=== PATIENT | female | born 1995 | race Caucasian/White ===

== ENCOUNTER 2018-10-07 10:27 | Outpatient (CLI) | payer OTHER ==
[2018-10-07] MEDS ORDERED: GADOBUTROL 7.5 MMOL/7.5 ML VIAL ONE (13:58)
[2018-10-07] MEDS ORDERED: GADOBUTROL 7.5 MMOL/7.5 ML VIAL IVP ONE (14:02)
--- NOTE | 2018-10-07 16:03 | MRI Report ---
Reason: PELVIC AND PERINEAL PAIN Procedure Date: 10/07/2018 Accession Number: [id number] / [id number] Procedure: MRI - Pelvis W/WO CPT Code: FULL RESULT: EXAM: MRI PELVIS WITHOUT AND WITH CONTRAST EXAM DATE: 10/07/2018 01:24 PM. CLINICAL HISTORY: PELVIC AND PERINEAL PAIN. COMPARISON: None. TECHNIQUE: Multiplanar, multisequence T1-weighted and fluid-sensitive sequences of the pelvis before and after administration of intravenous contrast. IV contrast: 6 cc Gadavist. Other: None. FINDINGS: Abdominal organs: None included in the [id number]. Reproductive organs: Uterus is anteverted and measures approximately 5.7 x 5.1 x 3.3 cm (50 cc). There is no evidence for uterine anomaly. The myometrium is unremarkable in appearance. No fibroids demonstrated. Endometrium measures approximately 3 mm in thickness, which is within normal limits. The cervix is unremarkable. A filling defect is present in the vagina, most likely a tampon. Both ovaries are unremarkable with multiple follicles. Right ovary measures 2.4 x 2.3 x 2.0 cm (5.7 cc). The left ovary measures 2.7 x 1.9 x 1.9 cm (5.1 cc). Bowel: No evidence for obstruction or inflammation visualized portions. There is stool in the cecum and ascending colon. Bones: The visualized bones demonstrate normal marrow signal. No osseous lesion or evidence for sacroiliitis. Other: No pelvic adenopathy or free fluid. IMPRESSION: Unremarkable pelvic MRI. No etiology for the patient's symptoms identified. RADIA
== END 2018-10-07 10:28 | disposition home or self-care (01) ==
LOC: DI 10:27
DX: R10.2 Pelvic and perineal pain (principal)
CPT/HCPCS: 72197; A9585

== ENCOUNTER 2019-05-02 08:36 | Day surgery (SDC) | payer OTHER ==
[~2019-05-02 08:36] MED LIST: BUPIVACAINE 0.5% PF 30 ML VIAL ONE; METHYLENE BLUE 0.5% 50 MG/10 ML AMPULE ONE; SILVER NITRATE APPLICATOR TOP ONE; VASOPRESSIN 20 UNIT/ML VIAL ONE
[2019-05-02] MEDS ORDERED: KETOROLAC 30 MG/ML VIAL IVP ONE (08:37)
[2019-05-02] MEDS ORDERED: PROPOFOL 200 MG/20 ML VIAL IVP ONE (08:37)
[2019-05-02] MEDS ORDERED: ONDANSETRON 4 MG/2 ML VIAL IVP ONE (08:37)
[2019-05-02] MEDS ORDERED: MIDAZOLAM 2 MG/2 ML VIAL IVP ONE (08:37)
[2019-05-02] MEDS ORDERED: DEXAMETHASONE 4 MG/ML VIAL IVP ONE (08:37)
[2019-05-02] MEDS ORDERED: fentaNYL 100 MCG/2 ML VIAL IVP ONE (08:37)
[2019-05-02] MEDS ORDERED: ePHEDrine 50 MG/ML VIAL IVP ONE (08:37)
[2019-05-02] MEDS ORDERED: NEOSTIGMINE 1 MG/1 ML 10 ML MDV IVP ONE (08:37)
[2019-05-02] MEDS ORDERED: GLYCOPYRROLATE 1 MG/5 ML VIAL IVP ONE (08:37)
[2019-05-02] MEDS ORDERED: ROCURONIUM 50 MG/5 ML VIAL IVP ONE (08:37)
--- NOTE | 2019-05-02 08:45 | ANESTHESIA ---
Pre-Anesthesia VS, & Labs - Diagnosis chronic pelvic pain - Procedure diagnostic laparoscopy Height 5 ft 4 in Weight (kg) 61.7 kg Body Mass Index 21.4 - NPO >8 hours - Is Patient ?: No - Lab Results Lab results reviewed: Yes Home Medications and Allergies Home Medications: Ambulatory Orders Ibuprofen [Motrin] 600 mg PO Q6H PRN 04/22/19 Norethindrone-Ethinyl Estrad [Ortho-Novum] 1 each PO 04/22/19 Sertraline HCl [Zoloft] 100 mg PO 04/22/19 Ibuprofen [Motrin] 600 mg PO Q6H PRN 04/22/19 Norethindrone-Ethinyl Estrad [Ortho-Novum] 1 each PO 04/22/19 Sertraline HCl [Zoloft] 100 mg PO 04/22/19 Allergies/Adverse Reactions: Allergies Allergy/AdvReac Type Severity Reaction Status Date / Time pollen extracts AdvReac Mild Unknown Verified 04/22/19 10:16 Anes History & Medical History - Anesthetic History Anesthesia Complications: reports: No previous complications Family history of Anesthesia Complications: Denies Family history of Malignant Hyperthermia: Denies - Medical History Cardiovascular: reports: None Pulmonary: reports: None Gastrointestinal: reports: None Urinary: reports: None Musculoskeletal: reports: None Endocrine/Autoimmune: reports: None Skin: reports: None - Surgical History General: Appendectomy Eyes Ears Nose Throat (EENT): Tonsil/Adenoidectomy Exam General: Alert, Oriented x3 Dental: WNL Mouth Openin Fingerbreadth Neck Mobility: Normal Mallampati classification: II Respiratory: Lungs clear, Normal breath sounds, No respiratory distress Cardiovascular: Regular rate Neurological: Normal speech Mental/Cognitive Status: Alert/Oriented X3, Normal for patient Cognitive Status: Within normal limits Plan Anesthesia Type: General Consent for Procedure(s) Verified and Reviewed: Yes Code Status: Attempt Resuscitation ASA classification: 1-Healthy patient Is this case an emergency?: No
[2019-05-02 09:06] LABS: HCG UR QUAL NEGATIVE
[2019-05-02] MEDS ORDERED: LACTATED RINGERS 1,000 ML IV ONE ×2 (09:12→11:58)
[2019-05-02] MEDS ORDERED: BUPIVACAINE 0.5% PF 30 ML VIAL SUBQ ONE ×2 (10:55)
[2019-05-02] MEDS ORDERED: HYDROcod/ACETAM 10 MG/325 MG TABLET PO PRN (11:28)
[2019-05-02] MEDS ORDERED: LORazepam 2 MG/ML VIAL ONE (11:55)
[2019-05-02] MEDS ORDERED: HYDROcod/ACETAM 10 MG/325 MG TABLET ONE (12:47)
[2019-05-02] MEDS ORDERED: IOVERSOL 320 50 ML VIAL ONE (13:24)
[2019-05-02] MEDS ORDERED: IOVERSOL 320 100 ML VIAL IVP ONE ×2 (14:10→14:14)
[2019-05-02 15:03] VITALS: BP 129/84
--- NOTE | 2019-05-02 15:17 | CT Report ---
Reason: post op pain, tachy hrt rt. Procedure Date: 05/02/2019 Accession Number: [id number] / [id number] Procedure: CT - Abdomen/Pelvis W CPT Code: FULL RESULT: EXAM: CT ABDOMEN AND PELVIS EXAM DATE: 05/02/2019 02:12 PM. CLINICAL HISTORY: Post operative abdominal pain, tachycardia. COMPARISONS: PELVIS W/WO 10/07/2018 1:24 PM. TECHNIQUE: Routine helical CT imaging was performed through the abdomen and pelvis. IV contrast: OPTI 320 100ML. Enteric contrast: No. Reconstructions: Coronal and sagittal. In accordance with CT protocol optimization, one or more of the following dose reduction techniques were utilized for this exam: automated exposure control, adjustment of mA and/or KV based on patient size, or use of iterative reconstructive technique. FINDINGS: Lung Bases: Mild heterogeneous patchy/nodular opacities present in the right lower lobe. Liver: Unremarkable aside from probable small amount of focal fat adjacent to the falciform ligament. Gallbladder/Bile Ducts: Unremarkable. Spleen: Normal. Pancreas: Normal. Adrenal Glands: Normal. Kidneys: Normal. No mass or hydronephrosis. Peritoneal Cavity/Bowel: No evidence of a bowel obstruction. There is a small amount of extraperitoneal gas in the lower abdomen and pelvis with a few foci of free air in the upper abdomen. No free fluid or abscess. No hemorrhage. No acute inflammatory process identified. The appendix is not identified. No evidence of acute appendicitis Pelvic Organs: Mildly distended bladder without wall thickening. Uterus and adnexa are unremarkable. Vasculature: Unremarkable. Bones: No significant abnormality. Other: Gas present in the lower ventral body wall. IMPRESSION: 1. A small amount of free air with extraperitoneal gas in the pelvis and gas in the ventral body wall is presumably postsurgical. Otherwise no acute intra-abdominal abnormality identified. No free fluid or hemorrhage. 2. Right lower lobe opacities could represent pneumonia or atelectasis. RADIA The call report notification system was initiated by Dr. Burton Cervantes at 02:55 PM on 05/02/2019. The above call report findings were discussed with Nate Gan by Dr. Burton Cervantes at 03:11 PM on 05/02/2019.
--- NOTE | 2019-05-02 16:00 | OPERATIVE REPORT ---
Operative Report - General Procedure Date: 05/02/19 Planned Procedure: Diagnostic laparoscopy Pre-Op Diagnosis: Chronic pelvic pain Procedure Performed: Diagnostic laparoscopy, aborted Post Op Diagnosis: Chronic pelvic pain - Procedure Note Primary Surgeon: Malik Secondary Surgeon: Yesika Anesthesia Provider: Anesthesia Technique: General ET tube Indications: 10 month history of pelvic pain which started during a jogging episode but seems to have become cyclic and associated with menses. Cleared by general surgery and orthopedics. Findings: Patient with a prior history of laparoscopic appendectomy. Unable to enter the abdomen through an umbilical port site either directly or using open technique with a Luis Fernando cannula. A second attempt was made to enter in the left upper quadrant; however, this was also unsuccessful x2. At this point it was elected to discontinue the case and refer the patient to a higher level of care. Complications: Inability to enter the abdomen after multiple attempts. - Other Other Information/Narrative: Findings: Exam under anesthesia noted the uterus was approximately 6 weeks in size and anteverted. There were no adnexal masses palpable. The patient was taken to the operating room, where general endotracheal anesthesia was administered without difficulty. She was then positioned in the low dorsal lithotomy position with her lower extremities in [place] stirrups. Vagina, perineum, and abdomen were then prepped and draped in a sterile fashion. Procedure Time-Out was then performed. An exam under anesthesia was performed. A sterile bivalve speculum was then inserted into the vagina. The anterior lip of the cervix was grasped with a Hulka tenaculum. Multiple attempts were made first with the Verres needle, but successful intra-abdominal placement could not be verified. Direct insertion using Optiview technique was then attempted x2 and was also unsuccessful. Finally multiple attempts with a Mcbride cannula were made, also unsuccessful. Finally 2 attempts were made to enter in the left upper quadrant but these were likewise unsuccessful possibly due to preperitoneal insufflation from previous attempts. It was elected at this juncture to abandon further attempts and refer the patient to a higher level of care. The umbilical incision was closed with the previously placed 2-0 Vicryl in the fascia and 4-0 Monocryl in the skin and the left upper quadrant incision was closed with a subcutaneous 4-0 Monocryl and both incisions closed with Dermabond. Instruments were withdrawn from the vagina and the patient was awakened and taken to the recovery room in stable condition.
== END 2019-05-02 08:37 | disposition home or self-care (01) ==
LOC: SDS 08:36
PROVIDERS: ATTEND Obstetrics & Gynecology
PROC: 0UJDXZZ Inspection of Uterus and Cervix, External Approach (ICD-10-PCS; principal; 2019-05-02 11:00)
DX: R10.2 Pelvic and perineal pain (principal); Z53.8 Procedure and treatment not carried out for other reasons; G89.29 Other chronic pain; Z79.3 Long term (current) use of hormonal contraceptives
CPT/HCPCS: 49320; 74177; 81025; A9270; J2060; J7120; Q9967

== ENCOUNTER 2019-05-29 12:22 | Emergency (ER) | payer OTHER ==
[2019-05-29 12:34] VITALS: BP 136/99
--- NOTE | 2019-05-29 14:15 | ED Physician Documentation ---
History of Present Illness - Stated complaint Stated Complaint: COLD SORES - Chief complaint Chief Complaint: General - History obtained from History obtained from: Patient (3 days of painful lesions on the tongue and right lower lip. She had some submandibular pain yesterday which is now better. 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 [employer]ER: Endometriosis (Possible endometriosis) : None HEENT: None Psych: Depression, Anxiety Musculoskeletal: None Derm: None - Past Surgical History General: Appendectomy HEENT: Tonsil/Adenoidectomy - Present Medications Home Medications: Ambulatory Orders Medication Instructions Recorded Confirmed Ibuprofen [Motrin] 600 mg PO Q6H PRN 04/22/19 05/02/19 Norethindrone-Ethinyl Estrad 1 each PO DAILY 04/22/19 05/02/19 [Ortho-Novum] Sertraline HCl [Zoloft] 100 mg PO DAILY 04/22/19 05/02/19 Valacyclovir HCl [Valtrex] 1,000 mg PO TID #30 tablet 05/29/19 - Allergies Allergies/Adverse Reactions: Allergies Allergy/AdvReac Type Severity Reaction Status Date / Time pollen extracts AdvReac Mild Unknown Verified 04/22/19 10:16 - Social History Does the pt drink ETOH?: No Does the pt have substance abuse?: No PD ED PE NORMAL - Vitals Vital signs reviewed: Yes - General General: Alert and oriented X 3, No acute distress - HEENT HEENT: Other (She has herpes labialis, fairly bad on the right lower lip and some lingular ulcers that are shallow.) - Neck Neck: Supple, no meningeal sign, No bony TTP - Neuro Neuro: Alert and oriented X 3, Normal speech Results - Vitals Vitals: Vital Signs - 24 hr 05/29/19 12:31 Temperature 37 C Heart Rate 99 Respiratory 18 Rate Blood Pressure 136/99 H O2 Saturation 100 Oxygen O2 Source Room air Departure - Departure Disposition: 01 Home, Self Care Clinical Impression: Herpes labialis, Oral ulcer Condition: Good Record reviewed to determine appropriate education?: Yes Instructions: ED Herpes Simplex Virus Type 1 Prescriptions: Valacyclovir HCl [Valtrex] 1,000 mg PO TID #30 tablet Comments: Your blood pressure was elevated today on check into the emergency department. This does not mean that you have hypertension, it is a common phenomenon to come to the emergency department and have elevated blood pressure. I recommend that you see your primary care physician within the week to have it rechecked when you are feeling better.
== END 2019-05-29 14:18 | disposition home or self-care (01) ==
LOC: ED 12:22
DX: B00.1 Herpesviral vesicular dermatitis (principal); K12.1 Other forms of stomatitis; R03.0 Elevated blood-pressure reading, without diagnosis of hypertension
CPT/HCPCS: 99282; 99283

== ENCOUNTER 2019-07-03 17:44 | Inpatient (IN) | payer OTHER ==
[2019-07-03 18:11] LABS: BASOPHILS # (AUTO) 0.1 10^3/uL (0.0-0.1); BASOPHILS % (AUTO) 0.6 %; EOSINOPHILS % (AUTO) 0.1 %; HGB - HEMOGLOBIN 14.6 g/dL (12.0-16.0); LYMPHOCYTES # (AUTO) 2.8 10^3/uL (1.5-3.5); MEAN CORPUSCULAR HEMOGLOBIN 28.9 pg (27.0-31.0); MEAN CORPUSCULAR HGB CONC 32.9 g/dL (32.0-36.0); MEAN CORPUSCULAR VOLUME 87.9 fL (81.0-99.0); MEAN PLATELET VOLUME 11.4 fL (7.9-10.8); MONOCYTES # (AUTO) 0.5 10^3/uL (0.0-1.0); MONOCYTES % (AUTO) 3.3 %; NEUTROPHILS # (AUTO) 12.9 10^3/uL (1.5-6.6); NEUTROPHILS % (AUTO) 78.3 %; PLT - PLATELET COUNT 299 10^3/uL (130-450); RED BLOOD COUNT 5.05 10^6/uL (4.20-5.40); RED CELL DISTRIBUTION WIDTH 12.9 % (12.0-15.0); WHITE BLOOD COUNT 16.5 x10^3/uL (4.8-10.8)
--- NOTE | 2019-07-03 18:12 | ED Physician Documentation ---
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 She presents with kind of an acute suicidal ideation today without specific inciting factor, and at 3 PM she took 2 oxycodone and 4000 mg of Zoloft in a suicide attempt. Convinced to come in by a friend of hers. 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: Endometriosis : None HEENT: None Psych: Depression, Anxiety Musculoskeletal: None Derm: None - Past Surgical History General: Appendectomy HEENT: Tonsil/Adenoidectomy - Present Medications Home Medications: Ambulatory Orders Medication Instructions Recorded Confirmed Ibuprofen [Motrin] 600 mg PO Q6H PRN 04/22/19 05/02/19 Norethindrone-Ethinyl Estrad 1 each PO DAILY 04/22/19 05/02/19 [Ortho-Novum] Sertraline HCl [Zoloft] 100 mg PO DAILY 04/22/19 05/02/19 Valacyclovir HCl [Valtrex] 1,000 mg PO TID #30 tablet 05/29/19 - Allergies Allergies/Adverse Reactions: Allergies Allergy/AdvReac Type Severity Reaction Status Date / Time pollen extracts AdvReac Mild Unknown Verified 07/03/19 17:48 - Social History Does the pt smoke?: No Smoking Status: Never smoker Does the pt drink ETOH?: No Does the pt have substance abuse?: No PD ED PE NORMAL - Vitals Vital signs reviewed: Yes - General General: Alert and oriented X 3, No acute distress - HEENT HEENT: Other (Slightly dilated pupils, tearful) - Neck Neck: Supple, no meningeal sign, No bony TTP - Cardiac Cardiac: RRR, No murmur - Respiratory Respiratory: No respiratory distress, Clear bilaterally - Abdomen Abdomen: Normal bowel sounds, Soft, Non tender - Back Back: No CVA TTP, No spinal TTP - Derm Derm: Normal color, Warm and dry - Extremities Extremities: No edema, No calf tenderness / cord - Neuro Neuro: Alert and oriented X 3, Normal speech Results - Vitals Vitals: Vital Signs - 24 hr 07/03/19 07/03/19 07/03/19 17:48 19:01 22:41 Temperature 37.2 C 36.5 C Heart Rate 127 H 122 H 159 H Respiratory 18 14 26 H Rate Blood Pressure 148/106 H 144/110 H 120/70 O2 Saturation 98 98 99 07/03/19 22:50 Temperature Heart Rate 166 H Respiratory 19 Rate Blood Pressure 134/69 H O2 Saturation 99 Oxygen O2 Source Room air - EKG (time done) 1829 Rate: Rate (enter#) (117) Rhythm: Sinus tachycardia [place]: Normal Intervals: Normal DC QRS: Normal Ischemia: Normal ST segments Computer interpretation: Agree with computer - Labs Labs: Laboratory Tests 07/03/19 07/03/19 07/03/19 17:55 17:55 17:55 WBC 16.5 H RBC 5.05 Hgb 14.6 Hct 44.4 MCV 87.9 MCH 28.9 MCHC 32.9 RDW 12.9 Plt Count 299 MPV 11.4 H Neut # (Auto) 12.9 H Lymph # (Auto) 2.8 [place] # (Auto) 0.5 Eos # (Auto) 0.0 Baso # (Auto) 0.1 Absolute Nucleated RBC 0.00 Nucleated RBC % 0.0 Sodium 139 Potassium 3.8 Chloride 106 Carbon Dioxide 23 Anion Gap 10.0 BUN 12 Creatinine 0.8 Estimated GFR (MDRD) 89 Glucose 112 H Calcium 9.4 Total Bilirubin 0.7 AST 21 ALT 14 Alkaline Phosphatase 43 Total Protein 8.6 H Albumin 4.6 Globulin 4.0 Albumin/Globulin Ratio 1.1 Lipase 45 TSH 1.08 Urine Color Urine Clarity Urine pH Ur Specific [place] Urine Protein Urine Glucose (UA) Urine Ketones Urine Occult Blood Urine Nitrite Urine Bilirubin Urine Urobilinogen Ur Leukocyte Esterase Urine RBC Urine WBC Ur Squamous Epith Cells Urine Bacteria Ur Microscopic Review Urine Culture Comments Urine HCG, Qual Salicylates < 6.0 Urine Opiates Screen Ur Oxycodone Screen Urine Methadone Screen Ur Propoxyphene Screen Acetaminophen 11 Ur Barbiturates Screen Ur Tricyclics Screen Ur Phencyclidine Scrn Ur Amphetamine Screen U Methamphetamines Scrn U Benzodiazepines Scrn Urine Cocaine Screen U Cannabinoids Screen Ethyl Alcohol < 5.0 07/03/19 07/03/19 18:10 18:10 WBC RBC Hgb Hct MCV MCH MCHC RDW Plt Count MPV Neut # (Auto) Lymph # (Auto) [place] # (Auto) Eos # (Auto) Baso # (Auto) Absolute Nucleated RBC Nucleated RBC % Sodium Potassium Chloride Carbon Dioxide Anion Gap BUN Creatinine Estimated GFR (MDRD) Glucose Calcium Total Bilirubin AST ALT Alkaline Phosphatase Total Protein Albumin Globulin Albumin/Globulin Ratio Lipase TSH Urine Color YELLOW Urine Clarity HAZY Urine pH 6.0 Ur Specific [place] >=1.030 H Urine Protein NEGATIVE Urine Glucose (UA) NEGATIVE Urine Ketones NEGATIVE Urine Occult Blood NEGATIVE Urine Nitrite POSITIVE H Urine Bilirubin NEGATIVE Urine Urobilinogen 0.2 (NORMAL) Ur Leukocyte Esterase NEGATIVE Urine RBC 0-5 Urine WBC 6-10 H Ur Squamous Epith Cells RARE Squamous Urine Bacteria Many H Ur Microscopic Review INDICATED Urine Culture Comments INDICATED Urine HCG, Qual NEGATIVE Salicylates Urine Opiates Screen POSITIVE H Ur Oxycodone Screen NEGATIVE Urine Methadone Screen NEGATIVE Ur Propoxyphene Screen NEGATIVE Acetaminophen Ur Barbiturates Screen NEGATIVE Ur Tricyclics Screen NEGATIVE Ur Phencyclidine Scrn NEGATIVE Ur Amphetamine Screen NEGATIVE U Methamphetamines Scrn NEGATIVE U Benzodiazepines Scrn NEGATIVE Urine Cocaine Screen NEGATIVE U Cannabinoids Screen NEGATIVE Ethyl Alcohol PD MEDICAL DECISION MAKING - ED course ED course: 23-year-old woman presents after intentional overdose on Zoloft and 2 Percocet. The 2 Percocet really is not too concerning but the Zoloft dose was impressive and she was observed for several hours on the advice of poison control with improving tachycardia and otherwise no obvious ill effects. Urine noted, she does not have any urinary symptoms such as dysuria frequency urgency foul smell or back pain. Accepted by Dr. Cabrera at [facility] at 9:59 PM and cobras were completed. She is stable for transport for psychiatric care. I was called into the room at 10:33 PM, she had become acutely and significantly tachycardic. She was feeling okay, not anxious, just think she felt warm. Sinus rhythm tachycardia on the right monitor. She was given IV fluids and a little Ativan. On reexamination her mental status was normal. She did have clonus now. It appears she has developed serotonin syndrome. She was given a second dose of Ativan. The Transport to [facility] was canceled as she is no longer medically clear and I spoke with Dr. Rosario for ICU admission at 10:50 PM. Departure - Departure Disposition: 66 [facility] DC/Xfer Clinical Impression: Serotonin syndrome Medication overdose Qualifiers: Encounter type: initial encounter Injury intent: intentional self-harm Qualif ied Code(s): T50.902A - Poisoning by unspecified drugs, medicaments and biological substances, intentional self-harm, initial encounter Condition: Serious
[2019-07-03 18:20] LABS: BILIRUBIN,URINE NEGATIVE (NEGATIVE); GLUCOSE, URINE (UA) NEGATIVE (NEGATIVE); KETONES,URINE (UA) NEGATIVE (NEGATIVE); LEUKOCYTE ESTERASE, URINE NEGATIVE (NEGATIVE); MUDS CUTOFF CONCENTRATIONS CUTOFF CONC BELOW:; NITRITE,URINE POSITIVE (NEGATIVE); OCCULT BLOOD,URINE NEGATIVE (NEGATIVE); PROTEIN,URINE NEGATIVE (NEGATIVE); UROBILINOGEN,URINE 0.2 (NORMAL) E.U./dL (NORMAL)
[2019-07-03 18:25] LABS: CLARITY,URINE HAZY (CLEAR); HCG UR QUAL NEGATIVE
[2019-07-03 18:29] LABS: ACETAMINOPHEN 11 ug/mL (10-30); ALBUMIN 4.6 g/dL (3.2-5.5); ALBUMIN/GLOBULIN RATIO 1.1 (1.0-2.2); ALKALINE PHOSPHATASE 43 IU/L (42-121); ALT ALANINE AMINOTRANSFERASE 14 IU/L (10-60); AST ASPARTATE AMINOTRANSFERASE 21 IU/L (10-42); BILIRUBIN,TOTAL 0.7 mg/dL (0.2-1.0); BUN - BLOOD UREA NITROGEN 12 mg/dL (6-20); CALCIUM 9.4 mg/dL (8.5-10.3); CARBON DIOXIDE - CO2 23 mmol/L (21-32); CHLORIDE 106 mmol/L (101-111); CREATININE 0.8 mg/dL (0.4-1.0); GFR - MDRD 89 (>89); GLUCOSE 112 mg/dL (70-100); LIPASE 45 U/L (22-51); SALICYLATE < 6.0 mg/dL; SODIUM 139 mmol/L (135-145); TOTAL PROTEIN 8.6 g/dL (6.7-8.2)
[2019-07-03 18:30] LABS: AMPHETAMINE SCREEN,URINE NEGATIVE (NEGATIVE); BENZODIAZEPINES SCREEN, URINE NEGATIVE (NEGATIVE); COCAINE SCREEN URINE NEGATIVE (NEGATIVE); METHADONE SCREEN, URINE NEGATIVE (NEGATIVE); METHAMPHETAMINES SCREEN, URINE NEGATIVE (NEGATIVE); OPIATE SCREEN, URINE POSITIVE (NEGATIVE); OXYCODONE SCREEN, URINE NEGATIVE (NEGATIVE); PROPOXYPHENE SCREEN, URINE NEGATIVE (NEGATIVE); TRICYCLIC ANTIDEPRESSANT,URINE NEGATIVE (NEGATIVE)
[2019-07-03 18:35] LABS: BACTERIA,URINE Many /HPF (None Seen); RBC,URINE 0-5 /HPF (0-5); SQUAMOUS EPITHELIAL CELL,UR RARE Squamous (<= Few)
[2019-07-03] MEDS ORDERED: LORazepam 2 MG/ML VIAL IVP STA ×2 (22:33→22:46)
[2019-07-03] MEDS ORDERED: SODIUM CHLORIDE 0.9% 1,000 ML IV ONE (22:33)
--- NOTE | 2019-07-03 23:41 | HISTORY & PHYSICAL EXAMINATION ---
Chief Complaint - Chief Complaint Chief Complaint: Suicide attempt History of Present Illness - Admitted From Admitted From:: Home - History Obtained From Records Reviewed: Yes History obtained from: Patient, ER Physician, EMR - History of Present Illness HPI Comment/Other: This is a 23-year-old female with a past medical history significant for dep ression, prior suicide attempts, endometriosis who presents today after ingesting Zoloft at home. She states that at around 4 PM she ingested 4000 mg of Zoloft and 2 tablets of oxycodone. She states she has been depressed for nearly 1 year and that this has been progressing. She reports a prior suicide attempt earlier this year around August when she was in [facility]. At that time she took DayQuil, NyQuil, and Advil. She never sought medical attention at that time. States her depression became very severe after 1 year ago when she ended her relationship with a gentleman she was supposed to . She states she would not have been a recent ship and that she felt she was being manipulated. The gentleman got along quite well with her family and she states that he accused her of lying and cheating. She states she does not get along with her family very well and this situation did not help and that her family confronted her about the relationship. She states the gentleman still keeps in touch with her family and that she has progressively become more depressed. She was seen in [facility] earlier this year after she voluntarily turned herself in for depression. She had been on Zoloft prior to this but her dose was increased 200 mg during that hospitalization. She states she has a strong family history of depression and bipolar disorder. Her sister has at this attempted suicide multiple times as well as her parents. She was upset when earlier this year her sister attempted suicide around the same time she did but her family did not support her and spent their efforts and time with her sister. Today she reported feeling nauseous and had an episode of vomiting after the ingestion of Zoloft. She reports feeling palpitations but denies chest pain or dyspnea. She reports feeling warm. Denies any diarrhea or abdominal pain. Denies dysuria or urgency. Does feel quite tremulous at the moment and she is unable to control these movements. In the emergency department, she was found to be afebrile the temperature of 39.2 C. She was tachycardic with a heart rate of 127. Also hypertensive with a blood pressure of 148/106. She was not tachypneic and saturating well on room air. Her labs and EKG were unremarkable. She was observed in the emerge d epartment for a few hours and was set to be transferred to [facility] for further evaluation when she became suddenly tachycardic in the 160s. She was then found to have clonus as well. She was given lorazepam IV and medicine was consulted for admission. History - Past Medical History Cardiovascular: reports: None Respiratory: reports: None Endocrine/Autoimmune: reports: None GI: reports: None COLOR CARD MAKER: reports: Endometriosis : reports: None HEENT: reports: None Psych: reports: Depression, Anxiety Musculoskeletal: reports: None Derm: reports: None MRSA Hx?: No - Past Surgical History General: reports: Appendectomy /COLOR CARD MAKER: reports: Other (Laparoscopy for endometriosis) HEENT: reports: Tonsil/Adenoidectomy - Family & Social History Family History Comment/Other: She reports her mother has bipolar and depression. Her sister also has depression. Her father has multiple medical problems including depression. All three family members have attempted suicide in the past. Living arrangement: At home Living Situation: With friend(s) Social History Notes: She lives with a roommate here on [address]. 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 She has no family in the surrounding area. She does not smoke or drink alcohol. Denies drug use. Meds/Allgy - Home Medications Home Medications: Ambulatory Orders Medication Instructions Recorded Confirmed Ibuprofen [Motrin] 600 mg PO Q6H PRN 04/22/19 05/02/19 Norethindrone-Ethinyl Estrad 1 each PO DAILY 04/22/19 05/02/19 [Ortho-Novum] Sertraline HCl [Zoloft] 100 mg PO DAILY 04/22/19 05/02/19 Valacyclovir HCl [Valtrex] 1,000 mg PO TID #30 tablet 05/29/19 - Allergies Allergies/Adverse Reactions: Allergies Allergy/AdvReac Type Severity Reaction Status Date / Time pollen extracts AdvReac Mild Unknown Verified 07/03/19 17:48 Review of Systems - Constitutional Constitutional: reports: Fever, Malaise - Cardiovascular Cariovascular: reports: Palpitations. denies: Chest pain, Exertional dyspnea, Decr. exercise tolerance - Respiratory Respiratory: denies: SOB at rest, SOB with exertion - Gastrointestinal Gastrointestinal: reports: Nausea, Vomiting. denies: Abdominal pain, Diarrhea, Change in bowel habits - Genitourinary Genitourinary: denies: Dysuria, Frequency, Urgency - Integumentary Integumentary: denies: Rash - Neurological Neurological: reports: Other (Tremors). denies: General weakness, Focal weakness - Psychiatric Psychiatric: reports: Depression, Suicidal - All Other Systems All Other Systems: reports: Reviewed and negative Prior Level of Functionality: She is independent with her ADLs. Exam - Vital Signs Reviewed Vital Signs: Yes Vital Signs: Vital Signs x48h Temp Pulse Resp BP Pulse Ox 07/03/19 22:50 166 H 19 134/69 H 99 07/03/19 22:41 36.5 C 159 H 26 H 120/70 99 07/03/19 19:01 122 H 14 144/110 H 98 07/03/19 17:48 37.2 C 127 H 18 148/106 H 98 - Physical Exam General Appearance: positive: Alert, Mild distress Eyes Bilateral: positive: Normal inspection ENT: positive: ENT inspection nml Neck: positive: Nml inspection Respiratory: positive: No respiratory distress. negative: Wheezes, Rales, Rhonchi Cardiovascular: positive: No murmur, Tachycardia. negative: Irregularly irregu lar, Bradycardia, Systolic murmur, Diastolic murmur Peripheral Pulses: positive: 2+ Abdomen: positive: Non-tender, Nml bowel sounds, No distention. negative: Tenderness, Guarding, Rebound Skin: positive: No rash, Warm, Dry, Other (She does appear slightly flushed on examination. No diaphoresis.). negative: Diaphoresis Extremities: positive: Full ROM, No pedal edema Neurologic/Psychiatric: positive: Oriented x3, Motor nml, Depressed mood/affect, Other (She has about 4-5 beats of clonus. She is also hyperreflexic (+2) in her lower extremities.). negative: Disoriented to person, Disoriented to place, Disoriented to time, Slurred/abnml speech Conclusion/Plan - Problem List (1) Serotonin syndrome Conclusion/Plan: She has clinical manifestations of serotonin syndrome given her lower extremity clonus, tremors, and hyperreflexia. Fortunately she is not febrile although she is tachycardic. She is mentating well and is not agitated. Her EKG is also unremarkable as her QRS and QTc are not prolonged. At this time, we will continue to hold all SSRIs. We will start her on lorazepam given the clonus. Neurochecks. (2) Suicide attempt by drug ingestion Conclusion/Plan: This is now at least her third suicide attempt after she ingested 4000 mg of Zoloft. She will need transfer to a psychiatric facility once medically cleared. We will keep her on one-to-one observation for the time being as she continues to have suicidal ideations. Social work consult for help with disposition. Qualifiers: Encounter type: initial encounter Qualified Code(s): T50.902A - Poisoning by unspecified drugs, medicaments and biological substances, intentional self- harm, initial encounter (3) Asymptomatic bacteriuria Conclusion/Plan: Although her urinalysis has pyuria and bacteria, she does not have symptoms of dysuria or urgency. There is no indication for antibiotics. - Lab Results Lab results reviewed: Yes Fish Bones: 07/03/19 17:55 07/03/19 17:55 - EKG Results EKG Interpreted Independently: Yes EKG Findings: Her EKG shows sinus tachycardia without ST segment changes. No prolonged QRS or QT. Core Measures - Anticipated LOS I expect patient to be DC'd or transferred within 96 hours.: Yes - Issues Hospital Issues and Management Plan: 23-year-old female admitted after intentional overdose on Zoloft. Now concerns for serotonin syndrome. She required Ativan IV. Will need transfer once medically cleared for further psychiatric evaluation.
[2019-07-03] MEDS: ONDANSETRON 4 MG/2 ML VIAL IVP PRN (23:50)
[2019-07-03] MEDS: LACTATED RINGERS 1,000 ML IV SCH (23:50)
[2019-07-04] MEDS ORDERED: LORazepam 2 MG/ML VIAL IVP STA (00:12)
[2019-07-04] MEDS ORDERED: LORazepam 2 MG/ML VIAL IVP PRN (00:13)
[2019-07-04] MEDS: SODIUM CHLORIDE FLUSH 0.9% 10 ML SYRINGE IVP SCH ×3 (00:27→17:43)
[2019-07-04] MEDS ORDERED: LACTATED RINGERS 1,000 ML IV ONE (01:19)
[2019-07-04] MEDS ORDERED: SODIUM CHLORIDE 0.9% 1,000 ML IV ONE (01:20)
[2019-07-04] MEDS: SODIUM CHLORIDE FLUSH 0.9% 10 ML SYRINGE IVP PRN (01:24)
[2019-07-04] MEDS: LORazepam 2 MG/ML VIAL IVP PRN ×10 (02:31→21:51)
[2019-07-04 05:06] LABS: BASOPHILS # (AUTO) 0.1 10^3/uL (0.0-0.1); BASOPHILS % (AUTO) 0.4 %; EOSINOPHILS % (AUTO) 0.1 %; HGB - HEMOGLOBIN 11.8 g/dL (12.0-16.0); LYMPHOCYTES # (AUTO) 2.9 10^3/uL (1.5-3.5); LYMPHOCYTES % (AUTO) 21.3 %; MEAN CORPUSCULAR HEMOGLOBIN 29.2 pg (27.0-31.0); MEAN CORPUSCULAR HGB CONC 33.1 g/dL (32.0-36.0); MEAN CORPUSCULAR VOLUME 88.1 fL (81.0-99.0); MEAN PLATELET VOLUME 11.5 fL (7.9-10.8); MONOCYTES # (AUTO) 0.6 10^3/uL (0.0-1.0); MONOCYTES % (AUTO) 4.4 %; NEUTROPHILS % (AUTO) 73.4 %; PLT - PLATELET COUNT 222 10^3/uL (130-450); RED BLOOD COUNT 4.04 10^6/uL (4.20-5.40); RED CELL DISTRIBUTION WIDTH 12.7 % (12.0-15.0); WHITE BLOOD COUNT 13.7 x10^3/uL (4.8-10.8)
[2019-07-04 05:18] LABS: CALCIUM 8.6 mg/dL (8.5-10.3); CREATININE 0.8 mg/dL (0.4-1.0); MAGNESIUM 1.9 mg/dL (1.7-2.8); PHOSPHORUS 3.2 mg/dL (2.5-4.6)
[2019-07-04] MEDS: LACTATED RINGERS 1,000 ML IV SCH ×2 (08:58→19:25)
[2019-07-04] MEDS: ONDANSETRON 4 MG/2 ML VIAL IVP PRN (12:15)
--- NOTE | 2019-07-04 16:30 | PROVIDER PROGRESS NOTE ---
Assessment/Plan - Problem List (1) Serotonin syndrome Assessment/Plan: Continue with gentle hydration. Ativan for symptoms. Not medically clear. (2) Medication overdose Qualifiers: Encounter type: initial encounter Injury intent: intentional self-harm Qualified Code(s): T50.902A - Poisoning by unspecified drugs, medicaments and biological substances, intentional self-harm, initial encounter Assessment/Plan: She still needs repeat arrangements for transfer to [facility] where she was previously accepted from the ER for psychiatry management, before she developed sx of serotonin syndrome. (3) Suicide attempt by drug ingestion Qualifiers: Encounter type: initial encounter Qualified Code(s): T50.902A - Poisoning by unspecified drugs, medicaments and biological substances, intentional self-mcdonald rm, initial encounter Assessment/Plan: Remain with one-to-one observation. Eventual transfer for psychiatry management. (4) E. coli UTI Assessment/Plan: Patient had dysuria, urgency and frequency today. Her urine culture has already grown positive and been IDed with E. coli. We will start IV cephalosporin treatment. Also Pyridium for her sx - Current Meds Current Meds: Current Medications Generic Name Dose Route Start Last Admin Trade Name Freq PRN Reason Stop Dose Admin Lactated Ringer's 1,000 mls @ 100 mls/hr 07/03/19 23:00 07/04/19 08:58 Lr IV 100 mls/hr .Q10H VALENTIN Administration Lorazepam 2 mg 07/04/19 01:27 07/04/19 11:05 Ativan Inj (Vial) IVP 2 mg Q1H PRN Administration NEEDED PER PROVIDER ORDERS Ondansetron HCl 4 mg 07/03/19 23:46 07/04/19 12:15 Zofran Inj IVP 4 mg Q6HR PRN Administration Nausea / Vomiting Sodium Chloride 10 ml 07/04/19 01:00 07/04/19 08:58 Normal Saline Flush 0.9% IVP Not Given 0100,0900,1700 VALENTIN Sodium Chloride 10 ml 07/03/19 22:48 07/04/19 01:24 Normal Saline Flush 0.9% IVP 10 ml PRN PRN Administration NEEDED PER PROVIDER ORDERS - Lab Result Fish Bone Diagrams: 07/04/19 04:44 07/04/19 04:44 Subjective - Subjective Patient Reports: Feeling Better Nursing Reports: Other (Still had intermittent clonus this afternoon. She is currently sleeping after Ativan) Objective Vital Signs: Vital Signs - 24 hr 07/03/19 07/03/19 07/03/19 17:48 19:01 22:41 Temperature 37.2 C 36.5 C Heart Rate 127 H 122 H 159 H Heart Rate [ Monitoring electrodes] Respiratory 18 14 26 H Rate Blood Pressure 148/106 H 144/110 H 120/70 Blood Pressure [Left Brachial artery] Blood Pressure [Right Brachial artery] O2 Saturation 98 98 99 07/03/19 07/03/19 07/04/19 22:50 23:00 00:00 Temperature 37.0 C Heart Rate 166 H Heart Rate [ 147 H 153 H Monitoring electrodes] Respiratory 19 14 18 Rate Blood Pressure 134/69 H Blood Pressure [Left Brachial artery] Blood Pressure 126/94 H 135/93 H [Right Brachial artery] O2 Saturation 99 98 99 07/04/19 07/04/19 07/04/19 01:00 02:00 03:00 Temperature 37.2 C Heart Rate Heart Rate [ 155 H 167 H 148 H Monitoring electrodes] Respiratory 23 28 H 19 Rate Blood Pressure Blood Pressure [Left Brachial artery] Blood Pressure 127/88 H 109/29 L 122/80 [Right Brachial artery] O2 Saturation 98 98 97 07/04/19 07/04/19 07/04/19 04:00 05:00 06:00 Temperature Heart Rate Heart Rate [ 143 H 135 H 141 H Monitoring electrodes] Respiratory 16 26 H 19 Rate Blood Pressure Blood Pressure [Left Brachial artery] Blood Pressure 125/91 H 134/82 H 134/98 H [Right Brachial artery] O2 Saturation 98 99 99 07/04/19 07/04/19 07/04/19 07:00 08:00 09:00 Temperature 36.9 C 36.9 C Heart Rate Heart Rate [ 139 H 128 H 105 H Monitoring electrodes] Respiratory 26 H 20 12 Rate Blood Pressure Blood Pressure 128/86 H 100/62 [Left Brachial artery] Blood Pressure 132/99 H [Right Brachial artery] O2 Saturation 98 98 95 07/04/19 07/04/19 07/04/19 10:00 11:00 11:35 Temperature 36.9 C Heart Rate 130 H Heart Rate [ 132 H 130 H Monitoring electrodes] Respiratory 22 22 Rate Blood Pressure Blood Pressure 129/88 H 127/94 H [Left Brachial artery] Blood Pressure [Right Brachial artery] O2 Saturation 99 99 99 07/04/19 07/04/19 07/04/19 12:00 13:00 14:00 Temperature 36.8 C Heart Rate Heart Rate [ 128 H 119 H 110 H Monitoring electrodes] Respiratory 18 22 22 Rate Blood Pressure Blood Pressure 120/86 H 118/81 H 118/83 H [Left Brachial artery] Blood Pressure [Right Brachial artery] O2 Saturation 99 100 99 07/04/19 07/04/19 15:00 16:00 Temperature 36.5 C Heart Rate Heart Rate [ 98 98 Monitoring electrodes] Respiratory 22 16 Rate Blood Pressure Blood Pressure 119/90 H 100/70 [Left Brachial artery] Blood Pressure [Right Brachial artery] O2 Saturation 98 97 Oxygen O2 Source Room air I&O (Last 24 Hrs): Intake and Output Totals x24h 07/02/19 07/03/19 07/04/19 23:59 23:59 23:59 Intake Total 1000 2763.333 Output Total 6525 Balance 1000 -3761.667 General: Other (Sedated) HEENT: Mucous membr. moist/pink, Other (Disheveled hair) Neck: No JVD Neuro: Other (Sedated) Cardiovascular: Regular rate Respiratory: No respiratory distress Abdomen: Soft Extremities: No edema - Results Results: Laboratory Results WBC 13.7 x10^3/uL (4.8-10.8) H 07/04/19 04:44 RBC 4.04 10^6/uL (4.20-5.40) L 07/04/19 04:44 Hgb 11.8 g/dL (12.0-16.0) L 07/04/19 04:44 Hct 35.6 % (37.0-47.0) L 07/04/19 04:44 MCV 88.1 fL (81.0-99.0) 07/04/19 04:44 MCH 29.2 pg (27.0-31.0) 07/04/19 04:44 MCHC 33.1 g/dL (32.0-36.0) 07/04/19 04:44 RDW 12.7 % (12.0-15.0) 07/04/19 04:44 Plt Count 222 10^3/uL (130-450) 07/04/19 04:44 MPV 11.5 fL (7.9-10.8) H 07/04/19 04:44 Neut # (Auto) 10.0 10^3/uL (1.5-6.6) H 07/04/19 04:44 Lymph # (Auto) 2.9 10^3/uL (1.5-3.5) 07/04/19 04:44 [place] # (Auto) 0.6 10^3/uL (0.0-1.0) 07/04/19 04:44 Eos # (Auto) 0.0 10^3/uL (0.0-0.7) 07/04/19 04:44 Baso # (Auto) 0.1 10^3/uL (0.0-0.1) 07/04/19 04:44 Absolute Nucleated RBC 0.00 x10^3/uL 07/04/19 04:44 Nucleated RBC % 0.0 /100WBC 07/04/19 04:44 Sodium 138 mmol/L (135-145) 07/04/19 04:44 Potassium 3.6 mmol/L (3.5-5.0) 07/04/19 04:44 Chloride 107 mmol/L (101-111) 07/04/19 04:44 Carbon Dioxide 23 mmol/L (21-32) 07/04/19 04:44 Anion Gap 8.0 (6-13) 07/04/19 04:44 BUN 9 mg/dL (6-20) 07/04/19 04:44 Creatinine 0.8 mg/dL (0.4-1.0) 07/04/19 04:44 Estimated GFR (MDRD) 89 (>89) 07/04/19 04:44 Glucose 95 mg/dL (70-100) 07/04/19 04:44 Calcium 8.6 mg/dL (8.5-10.3) 07/04/19 04:44 Phosphorus 3.2 mg/dL (2.5-4.6) 07/04/19 04:44 Magnesium 1.9 mg/dL (1.7-2.8) 07/04/19 04:44 Total Bilirubin 0.7 mg/dL (0.2-1.0) 07/03/19 17:55 AST 21 IU/L (10-42) 07/03/19 17:55 ALT 14 IU/L (10-60) 07/03/19 17:55 Alkaline Phosphatase 43 IU/L (42-121) 07/03/19 17:55 Total Protein 8.6 g/dL (6.7-8.2) H 07/03/19 17:55 Albumin 4.6 g/dL (3.2-5.5) 07/03/19 17:55 Globulin 4.0 g/dL (2.1-4.2) 07/03/19 17:55 Albumin/Globulin Ratio 1.1 (1.0-2.2) 07/03/19 17:55 Lipase 45 U/L (22-51) 07/03/19 17:55 TSH 1.08 uIU/mL (0.34-5.60) 07/03/19 17:55 Urine Color YELLOW 07/03/19 18:10 Urine Clarity HAZY (CLEAR) 07/03/19 18:10 Urine pH 6.0 PH (5.0-7.5) 07/03/19 18:10 Ur Specific [place] >=1.030 (1.002-1.030) H 07/03/19 18:10 Urine Protein NEGATIVE mg/dL (NEGATIVE) 07/03/19 18:10 Urine Glucose (UA) NEGATIVE mg/dL (NEGATIVE) 07/03/19 18:10 Urine Ketones NEGATIVE mg/dL (NEGATIVE) 07/03/19 18:10 Urine Occult Blood NEGATIVE (NEGATIVE) 07/03/19 18:10 Urine Nitrite POSITIVE (NEGATIVE) H 07/03/19 18:10 Urine Bilirubin NEGATIVE (NEGATIVE) 07/03/19 18:10 Urine Urobilinogen 0.2 (NORMAL) E.U./dL (NORMAL) 07/03/19 18:10 Ur Leukocyte Esterase NEGATIVE (NEGATIVE) 07/03/19 18:10 Urine RBC 0-5 /HPF (0-5) 07/03/19 18:10 Urine WBC 6-10 /HPF (0-5) H 07/03/19 18:10 Ur Squamous Epith Cells RARE Squamous (<= Few) 07/03/19 18:10 Urine Bacteria Many /HPF (None Seen) H 07/03/19 18:10 Ur Microscopic Review INDICATED 07/03/19 18:10 Urine Culture Comments INDICATED 07/03/19 18:10 Urine HCG, Qual NEGATIVE 07/03/19 18:10 Nasal Screen MRSA (PCR) NEGATIVE (NEGATIVE) 07/03/19 23:42 Salicylates < 6.0 mg/dL 07/03/19 17:55 Urine Opiates Screen POSITIVE (NEGATIVE) H 07/03/19 18:10 Ur Oxycodone Screen NEGATIVE (NEGATIVE) 07/03/19 18:10 Urine Methadone Screen NEGATIVE (NEGATIVE) 07/03/19 18:10 Ur Propoxyphene Screen NEGATIVE (NEGATIVE) 07/03/19 18:10 Acetaminophen 11 ug/mL (10-30) 07/03/19 17:55 Ur Barbiturates Screen NEGATIVE (NEGATIVE) 07/03/19 18:10 Ur Tricyclics Screen NEGATIVE (NEGATIVE) 07/03/19 18:10 Ur Phencyclidine Scrn NEGATIVE (NEGATIVE) 07/03/19 18:10 Ur Amphetamine Screen NEGATIVE (NEGATIVE) 07/03/19 18:10 U Methamphetamines Scrn NEGATIVE (NEGATIVE) 07/03/19 18:10 U Benzodiazepines Scrn NEGATIVE (NEGATIVE) 07/03/19 18:10 Urine Cocaine Screen NEGATIVE (NEGATIVE) 07/03/19 18:10 U Cannabinoids Screen NEGATIVE (NEGATIVE) 07/03/19 18:10 Ethyl Alcohol < 5.0 mg/dL 07/03/19 17:55 - Procedures Procedures: Procedures INSPECTION OF UTERUS AND CERVIX, EXTERNAL APPROACH (05/02/19)
[2019-07-04] MEDS ORDERED: IBUPROFEN 600 MG TABLET PO PRN (16:32)
[2019-07-04] MEDS: cefTRIAXone 1 GM in SODIUM CHLORIDE 0.9% MINIBAG 100 ML IV SCH (17:41)
[2019-07-04] MEDS: PHENAZOPYRIDINE 100 MG TABLET PO SCH ×2 (17:43→21:51)
[2019-07-04] MEDS: ACETAMINOPHEN 325 MG TABLET PO PRN (19:30)
[2019-07-05] MEDS: SODIUM CHLORIDE FLUSH 0.9% 10 ML SYRINGE IVP SCH ×3 (01:14→17:35)
[2019-07-05] MEDS: LORazepam 2 MG/ML VIAL IVP PRN ×7 (03:48→18:57)
[2019-07-05 05:14] LABS: BASOPHILS # (AUTO) 0.1 10^3/uL (0.0-0.1); BASOPHILS % (AUTO) 0.6 %; EOSINOPHILS # (AUTO) 0.1 10^3/uL (0.0-0.7); EOSINOPHILS % (AUTO) 0.7 %; HGB - HEMOGLOBIN 12.2 g/dL (12.0-16.0); LYMPHOCYTES # (AUTO) 2.3 10^3/uL (1.5-3.5); LYMPHOCYTES % (AUTO) 27.1 %; MEAN CORPUSCULAR HEMOGLOBIN 29.2 pg (27.0-31.0); MEAN CORPUSCULAR HGB CONC 33.3 g/dL (32.0-36.0); MEAN CORPUSCULAR VOLUME 87.6 fL (81.0-99.0); MEAN PLATELET VOLUME 11.6 fL (7.9-10.8); MONOCYTES # (AUTO) 0.5 10^3/uL (0.0-1.0); MONOCYTES % (AUTO) 5.5 %; NEUTROPHILS # (AUTO) 5.6 10^3/uL (1.5-6.6); NEUTROPHILS % (AUTO) 65.9 %; PLT - PLATELET COUNT 204 10^3/uL (130-450); RED BLOOD COUNT 4.18 10^6/uL (4.20-5.40); RED CELL DISTRIBUTION WIDTH 12.9 % (12.0-15.0); WHITE BLOOD COUNT 8.4 x10^3/uL (4.8-10.8)
[2019-07-05 05:27] LABS: ALBUMIN 3.7 g/dL (3.2-5.5); ALBUMIN/GLOBULIN RATIO 1.3 (1.0-2.2); BILIRUBIN,TOTAL 0.8 mg/dL (0.2-1.0); CALCIUM 8.5 mg/dL (8.5-10.3); CREATININE 0.8 mg/dL (0.4-1.0); TOTAL PROTEIN 6.6 g/dL (6.7-8.2)
[2019-07-05] MEDS: LACTATED RINGERS 1,000 ML IV SCH ×2 (05:28→16:15)
[2019-07-05] MEDS: PHENAZOPYRIDINE 100 MG TABLET PO SCH ×3 (07:00→21:58)
[2019-07-05] MEDS: SODIUM CHLORIDE FLUSH 0.9% 10 ML SYRINGE IVP PRN ×3 (07:40→13:56)
[2019-07-05] MEDS: cefTRIAXone 1 GM in SODIUM CHLORIDE 0.9% MINIBAG 100 ML IV SCH (09:49)
--- NOTE | 2019-07-05 12:03 | PHARMACY PROGRESS NOTE ---
- Best Possible Medication History Admit Date and Time: 07/03/19 2248 Processed by: Pharmacy Medication History completed: Yes Patient Interview: Pt unable to participate Secondary Source(s): Pharmacy records, Insurance records As the person ultimately responsible for medication therapy, providers are able to order a medication from an existing home medication list in [facility] via the "Reconcile Routine" prior to Confirmation of that medication by decision support analyst. Such practice is discouraged except when the physician, in their clinical judgment, deems that a medical need exists for a medication without regard to previous use.
[2019-07-05] MEDS: ACETAMINOPHEN 325 MG TABLET PO PRN (12:13)
[2019-07-05] MEDS: ONDANSETRON 4 MG/2 ML VIAL IVP PRN (15:24)
--- NOTE | 2019-07-05 17:16 | PROVIDER PROGRESS NOTE ---
Assessment/Plan - Problem List (1) Serotonin syndrome Assessment/Plan: She still gets clonic activity. She still has hyperreflexia. With pharmacist assistance, we discussed the half-life of Zoloft which is 24 hours therefore for half-lives will bring it down to half its level and she took these medications 2-1/2 days ago, therefore 1-1/2 days may still have neurologic effects. Continue in the ICU with current management (2) Medication overdose Qualifiers: Encounter type: initial encounter Injury intent: intentional self-harm Qualified Code(s): T50.902A - Poisoning by unspecified drugs, medicaments and biological substances, intentional self-harm, initial encounter Assessment/Plan: Zoloft was taken, which also has active metabolites. (3) Suicide attempt by drug ingestion Qualifiers: Encounter type: initial encounter Qualified Code(s): T50.902A - Poisoning by unspecified drugs, medicaments and biological substances, intentional self- harm, initial encounter Assessment/Plan: The SW are aware that she will need transfer to [facility]. Continue suicide watch, 1:1, etc. (4) E. coli UTI Assessment/Plan: Continue symptomatic treatment and iv antibiotic. Possible transition to po antibx tomorrow - Current Meds Current Meds: Current Medications Generic Name Dose Route Start Last Admin Trade Name Freq PRN Reason Stop Dose Admin Acetaminophen 650 mg 07/03/19 22:48 07/05/19 12:13 Tylenol PO 650 mg Q4HR PRN Administration Pain 1 to 4 Lactated Ringer's 1,000 mls @ 100 mls/hr 07/03/19 23:00 07/05/19 16:15 Lr IV 100 mls/hr .Q10H VALENTIN Administration Ceftriaxone Sodium 1 gm/ 100 mls @ 200 mls/hr 07/04/19 16:31 07/05/19 10:20 Sodium Chloride IV Infused DAILY VALENTIN Infusion Lorazepam 2 mg 07/04/19 01:27 07/05/19 13:49 Ativan Inj (Vial) IVP 2 mg Q1H PRN Administration NEEDED PER PROVIDER ORDERS Ondansetron HCl 4 mg 07/03/19 23:46 07/05/19 15:24 Zofran Inj IVP 4 mg Q6HR PRN Administration Nausea / Vomiting Phenazopyridine HCl 100 mg 07/04/19 17:00 07/05/19 14:50 Pyridium PO 100 mg TID VALENTIN Administration Sodium Chloride 10 ml 07/04/19 01:00 07/05/19 08:20 Normal Saline Flush 0.9% IVP 10 ml 0100,0900,1700 VALENTIN Administration Sodium Chloride 10 ml 07/03/19 22:48 07/05/19 13:56 Normal Saline Flush 0.9% IVP 10 ml PRN PRN Administration NEEDED PER PROVIDER ORDERS - Lab Result Fish Bone Diagrams: 07/05/19 04:36 07/05/19 04:36 - Additional Planning My Orders: My Active Orders 07/04/19 16:31 [id number] [Rocephin] 1 gm Sodium Chloride 0.9% Minibag [Normal Saline 0.9% Minibag] 100 ml IV DAILY 07/04/19 17:00 Phenazopyridine [Pyridium] 100 mg PO TID Subjective - Subjective Patient Reports: Feeling Better Nursing Reports: Other (Still has clonic shakes) Objective Vital Signs: Vital Signs - 24 hr 07/04/19 07/04/19 07/04/19 18:00 19:00 20:00 Temperature 36.6 C 36.9 C Heart Rate [ 137 H 110 H 106 H Monitoring electrodes] Respiratory 30 H 26 H 19 Rate Blood Pressure 119/90 H 120/93 H 125/93 H [Left Brachial artery] O2 Saturation 98 98 98 07/04/19 07/04/19 07/04/19 21:00 22:00 23:00 Temperature Heart Rate [ 96 110 H 90 Monitoring electrodes] Respiratory 21 25 H 22 Rate Blood Pressure 103/65 121/90 H 119/83 H [Left Brachial artery] O2 Saturation 98 97 07/05/19 07/05/19 07/05/19 00:00 01:00 02:00 Temperature 36.0 C L Heart Rate [ 97 89 96 Monitoring electrodes] Respiratory 13 21 23 Rate Blood Pressure 94/53 L 104/85 H 96/55 L [Left Brachial artery] O2 Saturation 96 07/05/19 07/05/19 07/05/19 03:00 04:00 05:00 Temperature 37.0 C Heart Rate [ 110 H 97 97 Monitoring electrodes] Respiratory 26 H 19 21 Rate Blood Pressure 100/66 121/80 108/72 [Left Brachial artery] O2 Saturation 97 07/05/19 07/05/19 07/05/19 06:00 07:00 08:00 Temperature 36.7 C Heart Rate [ 93 105 H 109 H Monitoring electrodes] Respiratory 19 18 21 Rate Blood Pressure 109/71 119/86 H 123/88 H [Left Brachial artery] O2 Saturation 07/05/19 07/05/19 07/05/19 09:00 10:00 11:02 Temperature 36.8 C Heart Rate [ 100 89 116 H Monitoring electrodes] Respiratory 24 21 21 Rate Blood Pressure 113/78 102/73 103/79 [Left Brachial artery] O2 Saturation 07/05/19 07/05/19 07/05/19 11:59 13:00 14:00 Temperature 36.6 C 36.6 C 36.8 C Heart Rate [ 123 H 111 H 114 H Monitoring electrodes] Respiratory 22 25 H 30 H Rate Blood Pressure 113/85 H 120/76 120/86 H [Left Brachial artery] O2 Saturation 99 07/05/19 07/05/19 07/05/19 15:00 16:00 16:04 Temperature 36.7 C Heart Rate [ 100 95 Monitoring electrodes] Respiratory 22 20 Rate Blood Pressure 95/61 116/85 H [Left Brachial artery] O2 Saturation 97 07/05/19 17:00 Temperature 36.5 C Heart Rate [ 99 Monitoring electrodes] Respiratory 25 H Rate Blood Pressure 121/88 H [Left Brachial artery] O2 Saturation 96 Oxygen O2 Source Room air I&O (Last 24 Hrs): Intake and Output Totals x24h 07/03/19 07/04/19 07/05/19 23:59 23:59 23:59 Intake Total 1000 4803.333 4910.000 Output Total 8975 3475 Balance 1000 -4171.667 1435.000 General: Alert, Other (Lethargic) HEENT: PERRLA Neuro: Alert, Other (Lethargic from sedatives, hyperreflexic) Cardiovascular: Regular rate Respiratory: No respiratory distress Abdomen: Soft Extremities: No edema - Results Results: Laboratory Results WBC 8.4 x10^3/uL (4.8-10.8) 07/05/19 04:36 RBC 4.18 10^6/uL (4.20-5.40) L 07/05/19 04:36 Hgb 12.2 g/dL (12.0-16.0) 07/05/19 04:36 Hct 36.6 % (37.0-47.0) L 07/05/19 04:36 MCV 87.6 fL (81.0-99.0) 07/05/19 04:36 MCH 29.2 pg (27.0-31.0) 07/05/19 04:36 MCHC 33.3 g/dL (32.0-36.0) 07/05/19 04:36 RDW 12.9 % (12.0-15.0) 07/05/19 04:36 Plt Count 204 10^3/uL (130-450) 07/05/19 04:36 MPV 11.6 fL (7.9-10.8) H 07/05/19 04:36 Neut # (Auto) 5.6 10^3/uL (1.5-6.6) 07/05/19 04:36 Lymph # (Auto) 2.3 10^3/uL (1.5-3.5) 07/05/19 04:36 [place] # (Auto) 0.5 10^3/uL (0.0-1.0) 07/05/19 04:36 Eos # (Auto) 0.1 10^3/uL (0.0-0.7) 07/05/19 04:36 Baso # (Auto) 0.1 10^3/uL (0.0-0.1) 07/05/19 04:36 Absolute Nucleated RBC 0.00 x10^3/uL 07/05/19 04:36 Nucleated RBC % 0.0 /100WBC 07/05/19 04:36 Sodium 136 mmol/L (135-145) 07/05/19 04:36 Potassium 3.9 mmol/L (3.5-5.0) 07/05/19 04:36 Chloride 104 mmol/L (101-111) 07/05/19 04:36 Carbon Dioxide 23 mmol/L (21-32) 07/05/19 04:36 Anion Gap 9.0 (6-13) 07/05/19 04:36 BUN 9 mg/dL (6-20) 07/05/19 04:36 Creatinine 0.8 mg/dL (0.4-1.0) 07/05/19 04:36 Estimated GFR (MDRD) 89 (>89) 07/05/19 04:36 Glucose 128 mg/dL (70-100) H 07/05/19 04:36 Calcium 8.5 mg/dL (8.5-10.3) 07/05/19 04:36 Phosphorus 3.2 mg/dL (2.5-4.6) 07/04/19 04:44 Magnesium 1.9 mg/dL (1.7-2.8) 07/04/19 04:44 Total Bilirubin 0.8 mg/dL (0.2-1.0) 07/05/19 04:36 AST 29 IU/L (10-42) 07/05/19 04:36 ALT 14 IU/L (10-60) 07/05/19 04:36 Alkaline Phosphatase 30 IU/L (42-121) L 07/05/19 04:36 Total Protein 6.6 g/dL (6.7-8.2) L 07/05/19 04:36 Albumin 3.7 g/dL (3.2-5.5) 07/05/19 04:36 Globulin 2.9 g/dL (2.1-4.2) 07/05/19 04:36 Albumin/Globulin Ratio 1.3 (1.0-2.2) 07/05/19 04:36 Lipase 45 U/L (22-51) 07/03/19 17:55 TSH 1.08 uIU/mL (0.34-5.60) 07/03/19 17:55 Urine Color YELLOW 07/03/19 18:10 Urine Clarity HAZY (CLEAR) 07/03/19 18:10 Urine pH 6.0 PH (5.0-7.5) 07/03/19 18:10 Ur Specific [place] >=1.030 (1.002-1.030) H 07/03/19 18:10 Urine Protein NEGATIVE mg/dL (NEGATIVE) 07/03/19 18:10 Urine Glucose (UA) NEGATIVE mg/dL (NEGATIVE) 07/03/19 18:10 Urine Ketones NEGATIVE mg/dL (NEGATIVE) 07/03/19 18:10 Urine Occult Blood NEGATIVE (NEGATIVE) 07/03/19 18:10 Urine Nitrite POSITIVE (NEGATIVE) H 07/03/19 18:10 Urine Bilirubin NEGATIVE (NEGATIVE) 07/03/19 18:10 Urine Urobilinogen 0.2 (NORMAL) E.U./dL (NORMAL) 07/03/19 18:10 Ur Leukocyte Esterase NEGATIVE (NEGATIVE) 07/03/19 18:10 Urine RBC 0-5 /HPF (0-5) 07/03/19 18:10 Urine WBC 6-10 /HPF (0-5) H 07/03/19 18:10 Ur Squamous Epith Cells RARE Squamous (<= Few) 07/03/19 18:10 Urine Bacteria Many /HPF (None Seen) H 07/03/19 18:10 Ur Microscopic Review INDICATED 07/03/19 18:10 Urine Culture Comments INDICATED 07/03/19 18:10 Urine HCG, Qual NEGATIVE 07/03/19 18:10 Nasal Screen MRSA (PCR) NEGATIVE (NEGATIVE) 07/03/19 23:42 Salicylates < 6.0 mg/dL 07/03/19 17:55 Urine Opiates Screen POSITIVE (NEGATIVE) H 07/03/19 18:10 Ur Oxycodone Screen NEGATIVE (NEGATIVE) 07/03/19 18:10 Urine Methadone Screen NEGATIVE (NEGATIVE) 07/03/19 18:10 Ur Propoxyphene Screen NEGATIVE (NEGATIVE) 07/03/19 18:10 Acetaminophen 11 ug/mL (10-30) 07/03/19 17:55 Ur Barbiturates Screen NEGATIVE (NEGATIVE) 07/03/19 18:10 Ur Tricyclics Screen NEGATIVE (NEGATIVE) 07/03/19 18:10 Ur Phencyclidine Scrn NEGATIVE (NEGATIVE) 07/03/19 18:10 Ur Amphetamine Screen NEGATIVE (NEGATIVE) 07/03/19 18:10 U Methamphetamines Scrn NEGATIVE (NEGATIVE) 07/03/19 18:10 U Benzodiazepines Scrn NEGATIVE (NEGATIVE) 07/03/19 18:10 Urine Cocaine Screen NEGATIVE (NEGATIVE) 07/03/19 18:10 U Cannabinoids Screen NEGATIVE (NEGATIVE) 07/03/19 18:10 Ethyl Alcohol < 5.0 mg/dL 07/03/19 17:55 - Procedures Procedures: Procedures INSPECTION OF UTERUS AND CERVIX, EXTERNAL APPROACH (05/02/19)
[2019-07-06] MEDS: SODIUM CHLORIDE FLUSH 0.9% 10 ML SYRINGE IVP SCH ×3 (00:12→16:00)
[2019-07-06] MEDS: IBUPROFEN 400 MG TABLET PO PRN ×2 (01:01→19:43)
[2019-07-06] MEDS: LACTATED RINGERS 1,000 ML IV SCH (01:59)
[2019-07-06] MEDS: cefTRIAXone 1 GM in SODIUM CHLORIDE 0.9% MINIBAG 100 ML IV SCH (07:50)
[2019-07-06] MEDS: PHENAZOPYRIDINE 100 MG TABLET PO SCH ×3 (08:30→22:49)
[2019-07-06] MEDS: LORazepam 2 MG/ML VIAL IVP PRN ×6 (10:30→18:47)
[2019-07-06] MEDS: SODIUM CHLORIDE FLUSH 0.9% 10 ML SYRINGE IVP PRN ×3 (12:46→18:47)
--- NOTE | 2019-07-06 17:05 | PROVIDER PROGRESS NOTE ---
Assessment/Plan - Problem List (1) Serotonin syndrome Assessment/Plan: The H&P does not indicate prior history of clonus or any shaking. I questioned the patient in detail today and she reports about 6 to 8 months of prior shaking episodes that could occur several times a week, lasts between 1 minute up to 30 minutes. She has never told any of her care providers about this, specifically not the person prescribing the Zoloft. She may have had excessive Zoloft intake therefore which is longstanding. Zo loft has a long half-life of 24 hours and she may therefore have body stores that are high with intermittent clonus based on that. Continue with IV Ativan. She is not cleared medically therefore to go to an inpatient psych center. [facility] had accepted her previously. SW was made aware. (2) Medication overdose Qualifiers: Encounter type: initial encounter Injury intent: intentional self-harm Qualified Code(s): T50.902A - Poisoning by unspecified drugs, medicaments and biological substances, intentional self-harm, initial encounter Assessment/Plan: As above (3) Suicide attempt by drug ingestion Qualifiers: Encounter type: initial encounter Qualified Code(s): T50.902A - Poisoning by unspecified drugs, medicaments and biological substances, intentional self- harm, initial encounter Assessment/Plan: Psych dx will need inpatient management. Continue 1:1 (4) E. coli UTI Assessment/Plan: Dysuria has resolved. Will change IV antibiotics to p.o. to complete a 7-day course total - Current Meds Current Meds: Current Medications Generic Name Dose Route Start Last Admin Trade Name Freq PRN Reason Stop Dose Admin Acetaminophen 650 mg 07/03/19 22:48 07/05/19 12:13 Tylenol PO 650 mg Q4HR PRN Administration Pain 1 to 4 Ceftriaxone Sodium 1 gm/ 100 mls @ 200 mls/hr 07/04/19 16:31 07/06/19 08:20 Sodium Chloride IV Infused DAILY VALENTIN Infusion Ibuprofen 400 mg 07/06/19 00:09 07/06/19 01:01 Motrin PO 400 mg Q6HR PRN Administration PAIN Lorazepam 2 mg 07/04/19 01:27 07/06/19 15:59 Ativan Inj (Vial) IVP 2 mg Q1H PRN Administration NEEDED PER PROVIDER ORDERS Ondansetron HCl 4 mg 07/03/19 23:46 07/05/19 15:24 Zofran Inj IVP 4 mg Q6HR PRN Administration Nausea / Vomiting Phenazopyridine HCl 100 mg 07/04/19 17:00 07/06/19 13:39 Pyridium PO 100 mg TID VALENTIN Administration Sodium Chloride 10 ml 07/04/19 01:00 07/06/19 16:00 Normal Saline Flush 0.9% IVP 10 ml 0100,0900,1700 VALENTIN Administration Sodium Chloride 10 ml 07/03/19 22:48 07/06/19 16:00 Normal Saline Flush 0.9% IVP 10 ml PRN PRN Administration NEEDED PER PROVIDER ORDERS - Lab Result Fish Bone Diagrams: 07/05/19 04:36 07/05/19 04:36 - Additional Planning My Orders: My Active Orders 07/06/19 10:43 Oral Care - Nursing [RC] BID Subjective - Subjective Patient Reports: Feeling Better Nursing Reports: Other (She had 12 hours with no clonus and then 4 episodes this afternoon, needing Ativan iv. The patient told her RN that she "has had these shaking spells for many months") Objective Vital Signs: Vital Signs - 24 hr 07/05/19 07/05/19 07/05/19 18:00 19:00 20:00 Temperature 37.1 C Heart Rate [ 116 H 105 H 91 Monitoring electrodes] Respiratory 30 H 23 21 Rate Blood Pressure 118/79 116/68 101/65 [Left Brachial artery] Blood Pressure [Right Brachial artery] O2 Saturation 96 95 97 07/05/19 07/05/19 07/05/19 21:00 22:00 23:00 Temperature 36.5 C Heart Rate [ 92 75 91 Monitoring electrodes] Respiratory 18 14 22 Rate Blood Pressure 95/64 124/84 H 114/87 H [Left Brachial artery] Blood Pressure [Right Brachial artery] O2 Saturation 96 100 99 07/06/19 07/06/19 07/06/19 00:00 01:00 02:00 Temperature Heart Rate [ 81 80 96 Monitoring electrodes] Respiratory 17 21 23 Rate Blood Pressure 119/91 H 98/64 121/94 H [Left Brachial artery] Blood Pressure [Right Brachial artery] O2 Saturation 98 96 96 07/06/19 07/06/19 07/06/19 03:00 04:00 05:00 Temperature Heart Rate [ 75 73 78 Monitoring electrodes] Respiratory 13 15 20 Rate Blood Pressure 103/59 L 99/61 103/67 [Left Brachial artery] Blood Pressure [Right Brachial artery] O2 Saturation 95 96 96 07/06/19 07/06/19 07/06/19 06:00 07:00 08:00 Temperature 36.6 C Heart Rate [ 74 95 73 Monitoring electrodes] Respiratory 17 21 21 Rate Blood Pressure 105/80 97/77 [Left Brachial artery] Blood Pressure 98/63 [Right Brachial artery] O2 Saturation 96 98 96 07/06/19 07/06/19 07/06/19 11:00 12:00 12:21 Temperature 36.6 C Heart Rate [ 109 H 101 H Monitoring electrodes] Respiratory 25 H 22 Rate Blood Pressure 114/79 111/79 [Left Brachial artery] Blood Pressure [Right Brachial artery] O2 Saturation 97 97 07/06/19 07/06/19 07/06/19 12:59 14:00 14:56 Temperature 36.6 C 36.3 C L Heart Rate [ 108 H 105 H 95 Monitoring electrodes] Respiratory 24 28 H 22 Rate Blood Pressure 112/78 116/79 96/61 [Left Brachial artery] Blood Pressure [Right Brachial artery] O2 Saturation 97 97 95 07/06/19 07/06/19 16:00 17:00 Temperature 36.6 C Heart Rate [ 97 92 Monitoring electrodes] Respiratory 27 H 17 Rate Blood Pressure 109/73 95/63 [Left Brachial artery] Blood Pressure [Right Brachial artery] O2 Saturation 98 98 Oxygen O2 Source Room air I&O (Last 24 Hrs): Intake and Output Totals x24h 07/04/19 07/05/19 07/06/19 23:59 23:59 23:59 Intake Total 4803.333 5350.000 2788.333 Output Total 8975 4425 300 Balance -4171.667 337.544 0510.333 General: Alert, Other (Lethargic, after iv Ativan) HEENT: Mucous membr. moist/pink Neck: Supple, No JVD Neuro: Other (Lethargic but awake, hyperreflexia is still presernt but much less than yesterday) Cardiovascular: Regular rate, No murmurs Respiratory: No respiratory distress, Breath sounds nml Abdomen: Normal bowel sounds, Soft Extremities: No edema - Results Results: Laboratory Results WBC 8.4 x10^3/uL (4.8-10.8) 07/05/19 04:36 RBC 4.18 10^6/uL (4.20-5.40) L 07/05/19 04:36 Hgb 12.2 g/dL (12.0-16.0) 07/05/19 04:36 Hct 36.6 % (37.0-47.0) L 07/05/19 04:36 MCV 87.6 fL (81.0-99.0) 07/05/19 04:36 MCH 29.2 pg (27.0-31.0) 07/05/19 04:36 MCHC 33.3 g/dL (32.0-36.0) 07/05/19 04:36 RDW 12.9 % (12.0-15.0) 07/05/19 04:36 Plt Count 204 10^3/uL (130-450) 07/05/19 04:36 MPV 11.6 fL (7.9-10.8) H 07/05/19 04:36 Neut # (Auto) 5.6 10^3/uL (1.5-6.6) 07/05/19 04:36 Lymph # (Auto) 2.3 10^3/uL (1.5-3.5) 07/05/19 04:36 [place] # (Auto) 0.5 10^3/uL (0.0-1.0) 07/05/19 04:36 Eos # (Auto) 0.1 10^3/uL (0.0-0.7) 07/05/19 04:36 Baso # (Auto) 0.1 10^3/uL (0.0-0.1) 07/05/19 04:36 Absolute Nucleated RBC 0.00 x10^3/uL 07/05/19 04:36 Nucleated RBC % 0.0 /100WBC 07/05/19 04:36 Sodium 136 mmol/L (135-145) 07/05/19 04:36 Potassium 3.9 mmol/L (3.5-5.0) 07/05/19 04:36 Chloride 104 mmol/L (101-111) 07/05/19 04:36 Carbon Dioxide 23 mmol/L (21-32) 07/05/19 04:36 Anion Gap 9.0 (6-13) 07/05/19 04:36 BUN 9 mg/dL (6-20) 07/05/19 04:36 Creatinine 0.8 mg/dL (0.4-1.0) 07/05/19 04:36 Estimated GFR (MDRD) 89 (>89) 07/05/19 04:36 Glucose 128 mg/dL (70-100) H 07/05/19 04:36 Calcium 8.5 mg/dL (8.5-10.3) 07/05/19 04:36 Phosphorus 3.2 mg/dL (2.5-4.6) 07/04/19 04:44 Magnesium 1.9 mg/dL (1.7-2.8) 07/04/19 04:44 Total Bilirubin 0.8 mg/dL (0.2-1.0) 07/05/19 04:36 AST 29 IU/L (10-42) 07/05/19 04:36 ALT 14 IU/L (10-60) 07/05/19 04:36 Alkaline Phosphatase 30 IU/L (42-121) L 07/05/19 04:36 Total Protein 6.6 g/dL (6.7-8.2) L 07/05/19 04:36 Albumin 3.7 g/dL (3.2-5.5) 07/05/19 04:36 Globulin 2.9 g/dL (2.1-4.2) 07/05/19 04:36 Albumin/Globulin Ratio 1.3 (1.0-2.2) 07/05/19 04:36 Lipase 45 U/L (22-51) 07/03/19 17:55 TSH 1.08 uIU/mL (0.34-5.60) 07/03/19 17:55 Urine Color YELLOW 07/03/19 18:10 Urine Clarity HAZY (CLEAR) 07/03/19 18:10 Urine pH 6.0 PH (5.0-7.5) 07/03/19 18:10 Ur Specific [place] >=1.030 (1.002-1.030) H 07/03/19 18:10 Urine Protein NEGATIVE mg/dL (NEGATIVE) 07/03/19 18:10 Urine Glucose (UA) NEGATIVE mg/dL (NEGATIVE) 07/03/19 18:10 Urine Ketones NEGATIVE mg/dL (NEGATIVE) 07/03/19 18:10 Urine Occult Blood NEGATIVE (NEGATIVE) 07/03/19 18:10 Urine Nitrite POSITIVE (NEGATIVE) H 07/03/19 18:10 Urine Bilirubin NEGATIVE (NEGATIVE) 07/03/19 18:10 Urine Urobilinogen 0.2 (NORMAL) E.U./dL (NORMAL) 07/03/19 18:10 Ur Leukocyte Esterase NEGATIVE (NEGATIVE) 07/03/19 18:10 Urine RBC 0-5 /HPF (0-5) 07/03/19 18:10 Urine WBC 6-10 /HPF (0-5) H 07/03/19 18:10 Ur Squamous Epith Cells RARE Squamous (<= Few) 07/03/19 18:10 Urine Bacteria Many /HPF (None Seen) H 07/03/19 18:10 Ur Microscopic Review INDICATED 07/03/19 18:10 Urine Culture Comments INDICATED 07/03/19 18:10 Urine HCG, Qual NEGATIVE 07/03/19 18:10 Nasal Screen MRSA (PCR) NEGATIVE (NEGATIVE) 07/03/19 23:42 Salicylates < 6.0 mg/dL 07/03/19 17:55 Urine Opiates Screen POSITIVE (NEGATIVE) H 07/03/19 18:10 Ur Oxycodone Screen NEGATIVE (NEGATIVE) 07/03/19 18:10 Urine Methadone Screen NEGATIVE (NEGATIVE) 07/03/19 18:10 Ur Propoxyphene Screen NEGATIVE (NEGATIVE) 07/03/19 18:10 Acetaminophen 11 ug/mL (10-30) 07/03/19 17:55 Ur Barbiturates Screen NEGATIVE (NEGATIVE) 07/03/19 18:10 Ur Tricyclics Screen NEGATIVE (NEGATIVE) 07/03/19 18:10 Ur Phencyclidine Scrn NEGATIVE (NEGATIVE) 07/03/19 18:10 Ur Amphetamine Screen NEGATIVE (NEGATIVE) 07/03/19 18:10 U Methamphetamines Scrn NEGATIVE (NEGATIVE) 07/03/19 18:10 U Benzodiazepines Scrn NEGATIVE (NEGATIVE) 07/03/19 18:10 Urine Cocaine Screen NEGATIVE (NEGATIVE) 07/03/19 18:10 U Cannabinoids Screen NEGATIVE (NEGATIVE) 07/03/19 18:10 Ethyl Alcohol < 5.0 mg/dL 07/03/19 17:55 - Procedures Procedures: Procedures INSPECTION OF UTERUS AND CERVIX, EXTERNAL APPROACH (05/02/19)
[2019-07-07] MEDS: SODIUM CHLORIDE FLUSH 0.9% 10 ML SYRINGE IVP SCH ×4 (02:14→19:22)
[2019-07-07] MEDS: PHENAZOPYRIDINE 100 MG TABLET PO SCH ×3 (06:04→21:35)
[2019-07-07] MEDS: SODIUM CHLORIDE FLUSH 0.9% 10 ML SYRINGE IVP PRN ×3 (06:04→18:03)
[2019-07-07] MEDS: CIPROFLOXACIN 250 MG TABLET PO SCH ×2 (09:01→21:35)
[2019-07-07] MEDS: LORazepam 2 MG/ML VIAL IVP PRN ×5 (09:45→19:21)
--- NOTE | 2019-07-07 14:23 | PROVIDER PROGRESS NOTE ---
Assessment/Plan - Problem List (1) Serotonin syndrome Assessment/Plan: She continues to have clonus, mostly during the day and trivial lower extremity hyperreflexia and requires IV Ativan because heart rate goes up to 150s during the clonus. She has not yet cleared medically for further psychiatric inpatient management. SW was informed. (2) Medication overdose Qualifiers: Encounter type: initial encounter Injury intent: intentional self-harm Qualified Code(s): T50.902A - Poisoning by unspecified drugs, medicaments and biological substances, intentional self-harm, initial encounter Assessment/Plan: Zoloft was the med injested. (3) Suicide attempt by drug ingestion Qualifiers: Encounter type: initial encounter Qualified Code(s): T50.902A - Poisoning by unspecified drugs, medicaments and biological substances, intentional self- harm, initial encounter Assessment/Plan: She will be gomh to [facility] for inpatient [facility] treatment, once medically stable. (4) E. coli UTI Assessment/Plan: She is on po Cipro. She has had antibiotics for 4 days as of today. The planned course of treatment will be 7 day total. - Current Meds Current Meds: Current Medications Generic Name Dose Route Start Last Admin Trade Name Freq PRN Reason Stop Dose Admin Acetaminophen 650 mg 07/03/19 22:48 07/05/19 12:13 Tylenol PO 650 mg Q4HR PRN Administration Pain 1 to 4 Ciprofloxacin 500 mg 07/07/19 09:00 07/07/19 09:01 Cipro PO 500 mg BID VALENTIN Administration Ibuprofen 400 mg 07/06/19 00:09 07/06/19 19:43 Motrin PO 400 mg Q6HR PRN Administration PAIN Lorazepam 2 mg 07/04/19 01:27 07/07/19 14:05 Ativan Inj (Vial) IVP 2 mg Q1H PRN Administration NEEDED PER PROVIDER ORDERS Ondansetron HCl 4 mg 07/03/19 23:46 07/05/19 15:24 Zofran Inj IVP 4 mg Q6HR PRN Administration Nausea / Vomiting Phenazopyridine HCl 100 mg 07/04/19 17:00 07/07/19 13:35 Pyridium PO 100 mg TID VALENTIN Administration Sodium Chloride 10 ml 07/04/19 01:00 07/07/19 09:01 Normal Saline Flush 0.9% IVP 10 ml 0100,0900,1700 VALENTIN Administration Sodium Chloride 10 ml 07/03/19 22:48 07/07/19 14:05 Normal Saline Flush 0.9% IVP 10 ml PRN PRN Administration NEEDED PER PROVIDER ORDERS - Lab Result Fish Bone Diagrams: 07/05/19 04:36 07/05/19 04:36 - Additional Planning My Orders: My Active Orders 07/07/19 09:00 Ciprofloxacin [Cipro] 500 mg PO BID Subjective - Subjective Patient Reports: No Complaints Nursing Reports: Other (Clonus twice so far on day shift (RUE) with tachy to 150.) Objective Vital Signs: Vital Signs - 24 hr 07/06/19 07/06/19 07/06/19 14:56 16:00 17:00 Temperature 36.6 C Heart Rate [ 95 97 92 Monitoring electrodes] Respiratory 22 27 H 17 Rate Blood Pressure 96/61 109/73 95/63 [Left Brachial artery] Blood Pressure [Right Brachial artery] O2 Saturation 95 98 98 07/06/19 07/06/19 07/06/19 18:00 19:00 20:00 Temperature Heart Rate [ 103 H 100 113 H Monitoring electrodes] Respiratory 13 17 25 H Rate Blood Pressure 115/80 120/73 99/79 [Left Brachial artery] Blood Pressure [Right Brachial artery] O2 Saturation 95 96 07/06/19 07/06/19 07/06/19 21:00 22:00 23:00 Temperature Heart Rate [ 101 H 91 83 Monitoring electrodes] Respiratory 23 23 23 Rate Blood Pressure 99/66 97/61 90/50 L [Left Brachial artery] Blood Pressure [Right Brachial artery] O2 Saturation 98 07/07/19 07/07/19 07/07/19 00:00 01:00 02:00 Temperature 36.7 C Heart Rate [ 104 H 87 80 Monitoring electrodes] Respiratory 22 19 21 Rate Blood Pressure 105/61 100/78 [Left Brachial artery] Blood Pressure 110/75 [Right Brachial artery] O2 Saturation 95 07/07/19 07/07/19 07/07/19 03:00 04:00 05:00 Temperature 36.4 C L Heart Rate [ 82 86 95 Monitoring electrodes] Respiratory 19 21 21 Rate Blood Pressure 90/60 92/57 L 90/60 [Left Brachial artery] Blood Pressure [Right Brachial artery] O2 Saturation 97 01/08/2507/07/19 07/07/19 06:00 07:15 08:00 Temperature 36.3 C L 36.8 C Heart Rate [ 87 105 H 83 Monitoring electrodes] Respiratory 22 23 23 Rate Blood Pressure 91/61 113/83 H 92/56 L [Left Brachial artery] Blood Pressure [Right Brachial artery] O2 Saturation 97 07/07/19 07/07/19 07/07/19 09:00 10:00 11:00 Temperature 36.8 C 36.7 C Heart Rate [ 100 94 98 Monitoring electrodes] Respiratory 24 26 H 22 Rate Blood Pressure 90/75 113/77 99/67 [Left Brachial artery] Blood Pressure [Right Brachial artery] O2 Saturation 07/07/19 07/07/19 07/07/19 12:00 13:00 14:00 Temperature 36.7 C 36.8 C Heart Rate [ 100 106 H 120 H Monitoring electrodes] Respiratory 22 29 H 30 H Rate Blood Pressure 108/77 108/71 101/75 [Left Brachial artery] Blood Pressure [Right Brachial artery] O2 Saturation Oxygen O2 Source Room air I&O (Last 24 Hrs): Intake and Output Totals x24h 07/05/19 07/06/19 07/07/19 23:59 23:59 23:59 Intake Total 5350.000 3018.333 600 Output Total 4425 300 Balance 131.240 1079.333 600 General: Other (Sedated, just had ativan.) HEENT: Mucous membr. moist/pink, Other (Poor dentition) Neck: Supple, No JVD Neuro: Other (Sedated after Ativan, but awakens. Has minimal lower extremity hyperreflexia, not of arms.) Cardiovascular: Regular rate Respiratory: No respiratory distress Abdomen: Soft Extremities: No edema - Results Results: Laboratory Results WBC 8.4 x10^3/uL (4.8-10.8) 07/05/19 04:36 RBC 4.18 10^6/uL (4.20-5.40) L 07/05/19 04:36 Hgb 12.2 g/dL (12.0-16.0) 07/05/19 04:36 Hct 36.6 % (37.0-47.0) L 07/05/19 04:36 MCV 87.6 fL (81.0-99.0) 07/05/19 04:36 MCH 29.2 pg (27.0-31.0) 07/05/19 04:36 MCHC 33.3 g/dL (32.0-36.0) 07/05/19 04:36 RDW 12.9 % (12.0-15.0) 07/05/19 04:36 Plt Count 204 10^3/uL (130-450) 07/05/19 04:36 MPV 11.6 fL (7.9-10.8) H 07/05/19 04:36 Neut # (Auto) 5.6 10^3/uL (1.5-6.6) 07/05/19 04:36 Lymph # (Auto) 2.3 10^3/uL (1.5-3.5) 07/05/19 04:36 [place] # (Auto) 0.5 10^3/uL (0.0-1.0) 07/05/19 04:36 Eos # (Auto) 0.1 10^3/uL (0.0-0.7) 07/05/19 04:36 Baso # (Auto) 0.1 10^3/uL (0.0-0.1) 07/05/19 04:36 Absolute Nucleated RBC 0.00 x10^3/uL 07/05/19 04:36 Nucleated RBC % 0.0 /100WBC 07/05/19 04:36 Sodium 136 mmol/L (135-145) 07/05/19 04:36 Potassium 3.9 mmol/L (3.5-5.0) 07/05/19 04:36 Chloride 104 mmol/L (101-111) 07/05/19 04:36 Carbon Dioxide 23 mmol/L (21-32) 07/05/19 04:36 Anion Gap 9.0 (6-13) 07/05/19 04:36 BUN 9 mg/dL (6-20) 07/05/19 04:36 Creatinine 0.8 mg/dL (0.4-1.0) 07/05/19 04:36 Estimated GFR (MDRD) 89 (>89) 07/05/19 04:36 Glucose 128 mg/dL (70-100) H 07/05/19 04:36 Calcium 8.5 mg/dL (8.5-10.3) 07/05/19 04:36 Phosphorus 3.2 mg/dL (2.5-4.6) 07/04/19 04:44 Magnesium 1.9 mg/dL (1.7-2.8) 07/04/19 04:44 Total Bilirubin 0.8 mg/dL (0.2-1.0) 07/05/19 04:36 AST 29 IU/L (10-42) 07/05/19 04:36 ALT 14 IU/L (10-60) 07/05/19 04:36 Alkaline Phosphatase 30 IU/L (42-121) L 07/05/19 04:36 Total Protein 6.6 g/dL (6.7-8.2) L 07/05/19 04:36 Albumin 3.7 g/dL (3.2-5.5) 07/05/19 04:36 Globulin 2.9 g/dL (2.1-4.2) 07/05/19 04:36 Albumin/Globulin Ratio 1.3 (1.0-2.2) 07/05/19 04:36 Lipase 45 U/L (22-51) 07/03/19 17:55 TSH 1.08 uIU/mL (0.34-5.60) 07/03/19 17:55 Urine Color YELLOW 07/03/19 18:10 Urine Clarity HAZY (CLEAR) 07/03/19 18:10 Urine pH 6.0 PH (5.0-7.5) 07/03/19 18:10 Ur Specific [place] >=1.030 (1.002-1.030) H 07/03/19 18:10 Urine Protein NEGATIVE mg/dL (NEGATIVE) 07/03/19 18:10 Urine Glucose (UA) NEGATIVE mg/dL (NEGATIVE) 07/03/19 18:10 Urine Ketones NEGATIVE mg/dL (NEGATIVE) 07/03/19 18:10 Urine Occult Blood NEGATIVE (NEGATIVE) 07/03/19 18:10 Urine Nitrite POSITIVE (NEGATIVE) H 07/03/19 18:10 Urine Bilirubin NEGATIVE (NEGATIVE) 07/03/19 18:10 Urine Urobilinogen 0.2 (NORMAL) E.U./dL (NORMAL) 07/03/19 18:10 Ur Leukocyte Esterase NEGATIVE (NEGATIVE) 07/03/19 18:10 Urine RBC 0-5 /HPF (0-5) 07/03/19 18:10 Urine WBC 6-10 /HPF (0-5) H 07/03/19 18:10 Ur Squamous Epith Cells RARE Squamous (<= Few) 07/03/19 18:10 Urine Bacteria Many /HPF (None Seen) H 07/03/19 18:10 Ur Microscopic Review INDICATED 07/03/19 18:10 Urine Culture Comments INDICATED 07/03/19 18:10 Urine HCG, Qual NEGATIVE 07/03/19 18:10 Nasal Screen MRSA (PCR) NEGATIVE (NEGATIVE) 07/03/19 23:42 Salicylates < 6.0 mg/dL 07/03/19 17:55 Urine Opiates Screen POSITIVE (NEGATIVE) H 07/03/19 18:10 Ur Oxycodone Screen NEGATIVE (NEGATIVE) 07/03/19 18:10 Urine Methadone Screen NEGATIVE (NEGATIVE) 07/03/19 18:10 Ur Propoxyphene Screen NEGATIVE (NEGATIVE) 07/03/19 18:10 Acetaminophen 11 ug/mL (10-30) 07/03/19 17:55 Ur Barbiturates Screen NEGATIVE (NEGATIVE) 07/03/19 18:10 Ur Tricyclics Screen NEGATIVE (NEGATIVE) 07/03/19 18:10 Ur Phencyclidine Scrn NEGATIVE (NEGATIVE) 07/03/19 18:10 Ur Amphetamine Screen NEGATIVE (NEGATIVE) 07/03/19 18:10 U Methamphetamines Scrn NEGATIVE (NEGATIVE) 07/03/19 18:10 U Benzodiazepines Scrn NEGATIVE (NEGATIVE) 07/03/19 18:10 Urine Cocaine Screen NEGATIVE (NEGATIVE) 07/03/19 18:10 U Cannabinoids Screen NEGATIVE (NEGATIVE) 07/03/19 18:10 Ethyl Alcohol < 5.0 mg/dL 07/03/19 17:55 - Procedures Procedures: Procedures INSPECTION OF UTERUS AND CERVIX, EXTERNAL APPROACH (05/02/19)
[2019-07-08] MEDS: SODIUM CHLORIDE FLUSH 0.9% 10 ML SYRINGE IVP PRN ×4 (01:11→15:55)
[2019-07-08] MEDS: LORazepam 2 MG/ML VIAL IVP PRN ×5 (01:11→23:39)
[2019-07-08] MEDS: PHENAZOPYRIDINE 100 MG TABLET PO SCH ×3 (05:54→21:37)
[2019-07-08] MEDS: CIPROFLOXACIN 250 MG TABLET PO SCH ×2 (10:50→21:37)
[2019-07-08] MEDS: polyethylene glycoL 3350 17 GM PACKET PO SCH (10:52)
[2019-07-08] MEDS: SODIUM CHLORIDE FLUSH 0.9% 10 ML SYRINGE IVP SCH ×3 (10:55→23:39)
[2019-07-08] MEDS: IBUPROFEN 400 MG TABLET PO PRN (12:59)
[2019-07-08] MEDS: DOCUSATE SODIUM 250 MG CAPSULE PO SCH (13:24)
[2019-07-08] MEDS: SENNA 8.6 MG TABLET PO SCH (13:25)
--- NOTE | 2019-07-08 13:48 | PROVIDER PROGRESS NOTE ---
Assessment/Plan - Problem List (1) Serotonin syndrome Assessment/Plan: Today she has nearly constant resting tremor of the right arm. She is hyperreflexic in that arm. She confirms that she has had clonic activity of that arm for the past several months and was afraid to tell anybody about it. There was discussion with a PURLER that she was afraid to tell anybody because it was her father's initial symptom and he was diagnosed with a brain tumor. We will obtain brain imaging with MRI, consult with neurology at [facility] if needed. She has now had 5 days of requiring Ativan for the clonus. She is weak and unstable walking to the bathroom, according to today PURLER, likely due to Ativan. We will order PT to start after the brain MRI results. (2) Medication overdose Qualifiers: Encounter type: initial encounter Injury intent: intentional self-harm Qualified Code(s): T50.902A - Poisoning by unspecified drugs, medicaments and biological substances, intentional self-harm, initial encounter Assessment/Plan: We knew of 100 mg Zoloft tablets that were taken. There is no blood level to check Zoloft. Continue with symptomatic management (3) Suicide attempt by drug ingestion Qualifiers: Encounter type: initial encounter Qualified Code(s): T50.902A - Poisoning by unspecified drugs, medicaments and biological substances, intentional self- harm, initial encounter Assessment/Plan: She has not yet been medically cleared for social work to do mental health eval and to arrange for transfer for inpatient psychiatry (4) E. coli UTI Assessment/Plan: She is finishing her last few days of oral Cipro. - Current Meds Current Meds: Current Medications Generic Name Dose Route Start Last Admin Trade Name Freq PRN Reason Stop Dose Admin Acetaminophen 650 mg 07/03/19 22:48 07/05/19 12:13 Tylenol PO 650 mg Q4HR PRN Administration Pain 1 to 4 Ciprofloxacin 500 mg 07/07/19 09:00 07/08/19 10:50 Cipro PO 07/11/19 00:00 500 mg BID VALENTIN Administration Docusate Sodium 250 - 500 mg 07/08/19 13:00 07/08/19 13:24 Colace 250mg Capsule PO 250 mg DAILY VALENTIN Administration Ibuprofen 400 mg 07/06/19 00:09 07/08/19 12:59 Motrin PO 400 mg Q6HR PRN Administration PAIN Lorazepam 2 mg 07/04/19 01:27 07/08/19 12:27 Ativan Inj (Vial) IVP 2 mg Q1H PRN Administration NEEDED PER PROVIDER ORDERS Ondansetron HCl 4 mg 07/03/19 23:46 07/05/19 15:24 Zofran Inj IVP 4 mg Q6HR PRN Administration Nausea / Vomiting Phenazopyridine HCl 100 mg 07/04/19 17:00 07/08/19 05:54 Pyridium PO 100 mg TID VALENTIN Administration Polyethylene Glycol 17 gm 07/08/19 09:00 07/08/19 10:52 Miralax PO 17 gm DAILY VALENTIN Administration Senna 8.6 - 17.2 mg 07/08/19 13:01 07/08/19 13:25 Senokot PO 8.6 mg DAILY VALENTIN Administration Sodium Chloride 10 ml 07/04/19 01:00 07/08/19 10:55 Normal Saline Flush 0.9% IVP 10 ml 0100,0900,1700 VALENTIN Administration Sodium Chloride 10 ml 07/03/19 22:48 07/08/19 12:27 Normal Saline Flush 0.9% IVP 10 ml PRN PRN Administration NEEDED PER PROVIDER ORDERS - Lab Result Fish Bone Diagrams: 07/05/19 04:36 07/05/19 04:36 - Additional Planning My Orders: My Active Orders 07/08/19 Evaluate and Treat OT [OT] Routine Evaluate and Treat PT [PT] Routine 07/08/19 09:00 polyethylene glycoL 3350 [Miralax] 17 gm PO DAILY 07/08/19 12:55 BRAIN WO [MRI] Routine 07/08/19 13:00 Docusate Sodium 250Mg Capsule [Colace 250Mg Capsule] 250 - 500 mg PO DAILY 07/08/19 13:01 Senna [Senokot] 8.6 - 17.2 mg PO DAILY Subjective - Subjective Patient Reports: Other (No clonic movements of the right arm today but a new continues tremor is present) Nursing Reports: Other (No BM for 2 to 3 days.) Objective Vital Signs: Vital Signs - 24 hr 07/07/19 07/07/19 07/07/19 14:00 15:00 16:00 Temperature 36.8 C 36.2 C L Heart Rate [ 120 H 120 H 124 H Monitoring electrodes] Respiratory 30 H 28 H 22 Rate Blood Pressure 101/75 110/80 105/84 H [Left Brachial artery] Blood Pressure [Right Brachial artery] O2 Saturation 07/07/19 07/07/19 07/07/19 17:00 18:00 19:00 Temperature 36.8 C Heart Rate [ 123 H 150 H 124 H Monitoring electrodes] Respiratory 21 23 28 H Rate Blood Pressure 115/97 H [Left Brachial artery] Blood Pressure 119/68 121/74 [Right Brachial artery] O2 Saturation 94 07/07/19 07/07/19 07/07/19 20:00 21:00 22:00 Temperature 37.0 C Heart Rate [ 107 H 106 H 100 Monitoring electrodes] Respiratory 27 H 23 23 Rate Blood Pressure 100/53 L 95/68 91/56 L [Left Brachial artery] Blood Pressure [Right Brachial artery] O2 Saturation 96 96 96 07/07/19 07/08/19 07/08/19 23:00 00:00 00:55 Temperature 36.9 C Heart Rate [ 98 97 Monitoring electrodes] Respiratory 24 26 H Rate Blood Pressure 101/62 102/60 [Left Brachial artery] Blood Pressure [Right Brachial artery] O2 Saturation 95 96 07/08/19 07/08/19 07/08/19 01:00 02:00 03:00 Temperature 36.7 C Heart Rate [ 110 H 103 H 90 Monitoring electrodes] Respiratory 27 H 27 H 20 Rate Blood Pressure 94/65 99/67 101/70 [Left Brachial artery] Blood Pressure [Right Brachial artery] O2 Saturation 95 07/08/19 07/08/19 07/08/19 04:00 05:00 06:00 Temperature Heart Rate [ 97 88 95 Monitoring electrodes] Respiratory 22 22 26 H Rate Blood Pressure 97/62 95/57 L 98/66 [Left Brachial artery] Blood Pressure [Right Brachial artery] O2 Saturation 07/08/19 07/08/19 07/08/19 07:00 08:00 09:00 Temperature Heart Rate [ 91 88 72 Monitoring electrodes] Respiratory 22 19 20 Rate Blood Pressure 91/56 L 95/60 97/70 [Left Brachial artery] Blood Pressure [Right Brachial artery] O2 Saturation 98 07/08/19 07/08/19 07/08/19 10:00 10:38 11:00 Temperature 36.5 C Heart Rate [ 86 94 Monitoring electrodes] Respiratory 22 19 Rate Blood Pressure 105/69 112/85 H [Left Brachial artery] Blood Pressure [Right Brachial artery] O2 Saturation 96 07/08/19 07/08/19 11:58 13:00 Temperature 36.2 C L Heart Rate [ 103 H 98 Monitoring electrodes] Respiratory 19 24 Rate Blood Pressure 114/77 101/75 [Left Brachial artery] Blood Pressure [Right Brachial artery] O2 Saturation 97 95 Oxygen O2 Source Room air I&O (Last 24 Hrs): Intake and Output Totals x24h 07/06/19 07/07/19 07/08/19 23:59 23:59 23:59 Intake Total 3018.333 1640 200 Output Total 300 0 0 Balance 2718.333 1640 200 General: Alert, Oriented x3 HEENT: Mucous membr. moist/pink, Other (Somewhat slow responses but appropriate and articulate) Neck: Supple Neuro: Alert, Other (2+ hyperreflexia in the right arm is present, a resting tremor of the right arm gets worse after the DTRs were checked in that arm.) Cardiovascular: Regular rate Respiratory: No respiratory distress Abdomen: Soft Extremities: No edema - Results Results: Laboratory Results WBC 8.4 x10^3/uL (4.8-10.8) 07/05/19 04:36 RBC 4.18 10^6/uL (4.20-5.40) L 07/05/19 04:36 Hgb 12.2 g/dL (12.0-16.0) 07/05/19 04:36 Hct 36.6 % (37.0-47.0) L 07/05/19 04:36 MCV 87.6 fL (81.0-99.0) 07/05/19 04:36 MCH 29.2 pg (27.0-31.0) 07/05/19 04:36 MCHC 33.3 g/dL (32.0-36.0) 07/05/19 04:36 RDW 12.9 % (12.0-15.0) 07/05/19 04:36 Plt Count 204 10^3/uL (130-450) 07/05/19 04:36 MPV 11.6 fL (7.9-10.8) H 07/05/19 04:36 Neut # (Auto) 5.6 10^3/uL (1.5-6.6) 07/05/19 04:36 Lymph # (Auto) 2.3 10^3/uL (1.5-3.5) 07/05/19 04:36 [place] # (Auto) 0.5 10^3/uL (0.0-1.0) 07/05/19 04:36 Eos # (Auto) 0.1 10^3/uL (0.0-0.7) 07/05/19 04:36 Baso # (Auto) 0.1 10^3/uL (0.0-0.1) 07/05/19 04:36 Absolute Nucleated RBC 0.00 x10^3/uL 07/05/19 04:36 Nucleated RBC % 0.0 /100WBC 07/05/19 04:36 Sodium 136 mmol/L (135-145) 07/05/19 04:36 Potassium 3.9 mmol/L (3.5-5.0) 07/05/19 04:36 Chloride 104 mmol/L (101-111) 07/05/19 04:36 Carbon Dioxide 23 mmol/L (21-32) 07/05/19 04:36 Anion Gap 9.0 (6-13) 07/05/19 04:36 BUN 9 mg/dL (6-20) 07/05/19 04:36 Creatinine 0.8 mg/dL (0.4-1.0) 07/05/19 04:36 Estimated GFR (MDRD) 89 (>89) 07/05/19 04:36 Glucose 128 mg/dL (70-100) H 07/05/19 04:36 Calcium 8.5 mg/dL (8.5-10.3) 07/05/19 04:36 Phosphorus 3.2 mg/dL (2.5-4.6) 07/04/19 04:44 Magnesium 1.9 mg/dL (1.7-2.8) 07/04/19 04:44 Total Bilirubin 0.8 mg/dL (0.2-1.0) 07/05/19 04:36 AST 29 IU/L (10-42) 07/05/19 04:36 ALT 14 IU/L (10-60) 07/05/19 04:36 Alkaline Phosphatase 30 IU/L (42-121) L 07/05/19 04:36 Total Protein 6.6 g/dL (6.7-8.2) L 07/05/19 04:36 Albumin 3.7 g/dL (3.2-5.5) 07/05/19 04:36 Globulin 2.9 g/dL (2.1-4.2) 07/05/19 04:36 Albumin/Globulin Ratio 1.3 (1.0-2.2) 07/05/19 04:36 Lipase 45 U/L (22-51) 07/03/19 17:55 TSH 1.08 uIU/mL (0.34-5.60) 07/03/19 17:55 Urine Color YELLOW 07/03/19 18:10 Urine Clarity HAZY (CLEAR) 07/03/19 18:10 Urine pH 6.0 PH (5.0-7.5) 07/03/19 18:10 Ur Specific [place] >=1.030 (1.002-1.030) H 07/03/19 18:10 Urine Protein NEGATIVE mg/dL (NEGATIVE) 07/03/19 18:10 Urine Glucose (UA) NEGATIVE mg/dL (NEGATIVE) 07/03/19 18:10 Urine Ketones NEGATIVE mg/dL (NEGATIVE) 07/03/19 18:10 Urine Occult Blood NEGATIVE (NEGATIVE) 07/03/19 18:10 Urine Nitrite POSITIVE (NEGATIVE) H 07/03/19 18:10 Urine Bilirubin NEGATIVE (NEGATIVE) 07/03/19 18:10 Urine Urobilinogen 0.2 (NORMAL) E.U./dL (NORMAL) 07/03/19 18:10 Ur Leukocyte Esterase NEGATIVE (NEGATIVE) 07/03/19 18:10 Urine RBC 0-5 /HPF (0-5) 07/03/19 18:10 Urine WBC 6-10 /HPF (0-5) H 07/03/19 18:10 Ur Squamous Epith Cells RARE Squamous (<= Few) 07/03/19 18:10 Urine Bacteria Many /HPF (None Seen) H 07/03/19 18:10 Ur Microscopic Review INDICATED 07/03/19 18:10 Urine Culture Comments INDICATED 07/03/19 18:10 Urine HCG, Qual NEGATIVE 07/03/19 18:10 Nasal Screen MRSA (PCR) NEGATIVE (NEGATIVE) 07/03/19 23:42 Salicylates < 6.0 mg/dL 07/03/19 17:55 Urine Opiates Screen POSITIVE (NEGATIVE) H 07/03/19 18:10 Ur Oxycodone Screen NEGATIVE (NEGATIVE) 07/03/19 18:10 Urine Methadone Screen NEGATIVE (NEGATIVE) 07/03/19 18:10 Ur Propoxyphene Screen NEGATIVE (NEGATIVE) 07/03/19 18:10 Acetaminophen 11 ug/mL (10-30) 07/03/19 17:55 Ur Barbiturates Screen NEGATIVE (NEGATIVE) 07/03/19 18:10 Ur Tricyclics Screen NEGATIVE (NEGATIVE) 07/03/19 18:10 Ur Phencyclidine Scrn NEGATIVE (NEGATIVE) 07/03/19 18:10 Ur Amphetamine Screen NEGATIVE (NEGATIVE) 07/03/19 18:10 U Methamphetamines Scrn NEGATIVE (NEGATIVE) 07/03/19 18:10 U Benzodiazepines Scrn NEGATIVE (NEGATIVE) 07/03/19 18:10 Urine Cocaine Screen NEGATIVE (NEGATIVE) 07/03/19 18:10 U Cannabinoids Screen NEGATIVE (NEGATIVE) 07/03/19 18:10 Ethyl Alcohol < 5.0 mg/dL 07/03/19 17:55 - Procedures Procedures: Procedures INSPECTION OF UTERUS AND CERVIX, EXTERNAL APPROACH (05/02/19)
--- NOTE | 2019-07-08 17:09 | MRI Report ---
Reason: seizures Procedure Date: 07/08/2019 Accession Number: [id number] / [id number] Procedure: MRI - Brain W/O CPT Code: Final Report FULL RESULT: EXAM: MRI BRAIN WITHOUT CONTRAST EXAM DATE: 07/08/2019 03:17 PM. CLINICAL HISTORY: 23-year-old woman with seizure. COMPARISON: None. TECHNIQUE: Sagittal T1-weighted and coronal T2-weighted MR sequences of the brain were performed. The patient was seizing during the exam and the exam was terminated prematurely. Other: None. IV Contrast: None. FINDINGS: Parenchyma: Limited evaluation of the parenchyma is unremarkable. No mass lesion or geographic region of signal abnormality. Pituitary: Normal in size. Ventricles and Extra-axial Spaces: Ventricles are symmetric and normal in size for age. Limited evaluation of the extra-axial spaces is unremarkable. Orbits: Unremarkable. Sinuses: Paranasal sinuses and mastoid air cells are clear. Major Vascular Flow Voids: Intact. IMPRESSION: 1. Limited exam. Examination was terminated prematurely due to active seizure. 2. No mass lesion or geographic region of signal abnormality is identified on the limited sequences. RAD[facility]
[2019-07-09] MEDS: PHENAZOPYRIDINE 100 MG TABLET PO SCH (06:09)
[2019-07-09] MEDS: SODIUM CHLORIDE FLUSH 0.9% 10 ML SYRINGE IVP PRN (06:13)
[2019-07-09] MEDS: CIPROFLOXACIN 250 MG TABLET PO SCH (08:36)
[2019-07-09] MEDS: polyethylene glycoL 3350 17 GM PACKET PO SCH (08:38)
[2019-07-09] MEDS: SENNA 8.6 MG TABLET PO SCH (08:41)
[2019-07-09] MEDS: DOCUSATE SODIUM 250 MG CAPSULE PO SCH (08:41)
[2019-07-09] MEDS: SODIUM CHLORIDE FLUSH 0.9% 10 ML SYRINGE IVP SCH ×2 (08:41→17:00)
[2019-07-09 09:05] LABS: BASOPHILS # (AUTO) 0.1 10^3/uL (0.0-0.1); BASOPHILS % (AUTO) 1.1 %; EOSINOPHILS # (AUTO) 0.2 10^3/uL (0.0-0.7); EOSINOPHILS % (AUTO) 2.1 %; HGB - HEMOGLOBIN 14.1 g/dL (12.0-16.0); LYMPHOCYTES # (AUTO) 2.8 10^3/uL (1.5-3.5); LYMPHOCYTES % (AUTO) 36.5 %; MEAN CORPUSCULAR HEMOGLOBIN 29.4 pg (27.0-31.0); MEAN CORPUSCULAR HGB CONC 32.8 g/dL (32.0-36.0); MEAN CORPUSCULAR VOLUME 89.6 fL (81.0-99.0); MEAN PLATELET VOLUME 11.4 fL (7.9-10.8); MONOCYTES # (AUTO) 0.6 10^3/uL (0.0-1.0); MONOCYTES % (AUTO) 7.4 %; NEUTROPHILS % (AUTO) 52.5 %; PLT - PLATELET COUNT 230 10^3/uL (130-450); RED CELL DISTRIBUTION WIDTH 12.5 % (12.0-15.0); WHITE BLOOD COUNT 7.5 x10^3/uL (4.8-10.8)
[2019-07-09 09:11] LABS: CALCIUM 9.2 mg/dL (8.5-10.3); CREATININE 0.9 mg/dL (0.4-1.0); MAGNESIUM 2.3 mg/dL (1.7-2.8)
--- NOTE | 2019-07-09 16:24 | Discharge Plan ---
Discharge Plan Problem Reviewed?: Yes Disposition: 02 Transfer Acute Care Hosp Condition: Stable Diet: Regular Activity Restrictions: Activity as Tolerated Health Concerns: Admitted after an intentional suicide attempt, by taking an overdose of Zoloft. Serotonin syndrome developed. The clonus and sudden tachycardia needed to be treated with Ativan and it took approximately 4 days for improvement. Following that there was an arm tremor that needed evaluation, but apparently the arm tremor has been there for the past 5 years and occurs when she is "nervous". She was also treated for symptomatic urinary tract infection. She is deemed stable from a medical standpoint, to undergo mental health evaluation and management. Plan of Treatment: Transfer to [facility] for further mental health evaluation and treatment. Care Goals: Provement and stabilization of the goals. Assessment: Patient understands and is agreeable with the plan. No Smoking: If you smoke, Please STOP! Call for help. Follow-up with: HERMES MUNGUIA MD [Primary Care Provider] -
--- NOTE | 2019-07-09 16:29 | DISCHARGE SUMMARY ---
Discharge Summary Admit Date: 07/03/19 Discharge Date: 07/09/19 Discharging Provider: Dr Yaneth Alcantar Primary Care Provider: Dr Nate Valero Code Status: Attempt Resuscitation Condition at Discharge: Stable Discharge Disposition: 02 Transfer Acute Care Hosp Discharge Facility Name: [facility] - DIAGNOSES Admission Diagnoses: (1) Serotonin syndrome (2) Suicide attempt by drug ingestion (3) Asymptomatic bacteriuria Discharge Diagnoses with Status of Each Condition: See below - HPI History of Present Illness: From the admission H&P of Dr Marcial Rosario: This is a 23-year-old female with a past medical history significant for depression, prior suicide attempts, endometriosis who presents today after ingesting Zoloft at home. She states that at around 4 PM she ingested 4000 mg of Zoloft and 2 tablets of oxycodone. She states she has been depressed for nearly 1 year and that this has been progressing. She reports a prior suicide attempt earlier this year around August when she was in [facility]. At that time she took DayQuil, NyQuil, and Advil. She never sought medical attention at that time. States her depression became very severe after 1 year ago when she ended her relationship with a gentleman she was supposed to . She states she would not have been a recent ship and that she felt she was being manipulated. The gentleman got along quite well with her family and she states that he accused her of lying and cheating. She states she does not get along with her family very well and this situation did not help and that her family confronted her about the relationship. She states the gentleman still keeps in touch with her family and that she has progressively become more depressed. She was seen in [facility] earlier this year after she voluntarily turned herself in for depression. She had been on Zoloft prior to this but her dose was increased 200 mg during that hospitalization. She states she has a strong family history of depression and bipolar disorder. Her sister has at this attempted suicide multiple times as well as her parents. She was upset when earlier this year her sister attempted suicide around the same time she did but her family did not support her and spent their efforts and time with her sister. Today she reported feeling nauseous and had an episode of vomiting after the ingestion of Zoloft. She reports feeling palpitations but denies chest pain or dyspnea. She reports feeling warm. Denies any diarrhea or abdominal pain. Denies dysuria or urgency. Does feel quite tremulous at the moment and she is unable to control these movements. In the emergency department, she was found to be afebrile the temperature of 39.2 C. She was tachycardic with a heart rate of 127. Also hypertensive with a blood pressure of 148/106. She was not tachypneic and saturating well on room air. Her labs and EKG were unremarkable. She was observed in the emergency department for a few hours and was set to be transferred to [facility] for further evaluation when she became suddenly tachycardic in the 160s. She was then found to have arm clonus as well. She was given lorazepam IV and admitted to the ICU. - HOSPITAL COURSE Hospital Course: (1) Serotonin syndrome All SSRIs were stopped. She had marked clonus mostly of the arms, accompanied with sudden sustained tachycardia in sinus rhythm to HRs of 140-160. She was hyperreflexic for about 5 days. These clonus episodes were treated with Ativan 1 mg IV every hour prn. Because of this treatment she often was somnolent for prolonged periods of time. She was weak and unstable when walking to the bathroom, according to her [employer]UR[employer] ALARM SUPERINTENDENT, likely due to Ativan. On her final day, evaluation with Physical Therapy showed that she was stable, since no Ativan had been dosed for > 12 hours. (2) Tremor In the last 3 days of this hospital stay, a different problem, a nearly constant resting tremor of the right arm and hand was seen. She was still hyperreflexic in that arm. She first said that she has had "shaking" activity of that arm for the past several months and was afraid to tell anybody about it. There was discussion with a BURGL[employer] ALARM SUPERINTENDENT that she was afraid to tell anybody because it was her father's initial symptom and he was diagnosed with a brain tumor. She therefore underwent brain imaging with MRI, which showed no problem. On the last day of hospitalization, she reported that her tremor has been there for 5 years and would come and go whenever she is "nervous". (3) Medication overdose We knew of 40 tablets of 100 mg Zoloft tablets that were taken. There is no blood test to check Zoloft levels. A rough estimate by our pharmacist indicated that the clinical side-effects could last for 4 days since the half-life of Zoloft is 24 hours. She continued to have symptomatic management using Ativan. (4) Suicide attempt by drug ingestion When she was medically cleared for social work to do mental health evaluation, she voiced suicidal thoughts, and it was again arranged for her to transfer for inpatient psychiatry management to [facility] by BLS ambulance in stable condition. (5) E. coli UTI She did develop dysuria and the urinalysis had shown bacteria and WBCs and it was cultured and quickly grew E. coli. She was treated with 2 days of iv Cefriaxone then transitioned to oral Cipro (to which the E coli was sensitive) and had several days of Pyridium. All symptoms resolved by the time of transfer. - ALLERGIES Allergies/Adverse Reactions: Allergies Allergy/AdvReac Type Severity Reaction Status Date / Time pollen extracts AdvReac Mild Unknown Verified 07/03/19 17:48 murrell pepper AdvReac Edema Uncoded 07/05/19 15:09 - PHYSICAL EXAM AT DISCHARGE General Appearance: positive: No acute distress, Alert Eyes Bilateral: positive: Normal inspection, EOMI Neck: positive: Nml inspection, No JVD Respiratory: positive: No respiratory distress, Breath sounds nml Cardiovascular: positive: Regular rate & rhythm, No murmur Abdomen: positive: Non-tender, Nml bowel sounds, No distention Skin: positive: Color nml Extremities: positive: No pedal edema Neurologic/Psychiatric: positive: Oriented x3, Other (Non-focal with 5/5 strength.) - LABS Result Diagrams: 07/09/19 08:55 07/09/19 08:55 - DIAGNOSTIC IMAGING Diagnostic Imaging Results: Final report reviewed - FOLLOW UP Follow Up: This will be determined after her discharge from [facility]. - TIME SPENT Time Spent in Discharge (Minutes): 45
[2019-07-09 18:17] VITALS: BP 114/82
== END 2019-07-09 18:18 | disposition short-term general hospital (02) | DRG 918 ==
LOC: ED 17:44 → ICU 22:48 → MS3 22:48 → UNDOADMIN 22:48
PROVIDERS: ADMIT Internal Medicine; ATTEND Internal Medicine
DX: T43.222A Poisoning by selective serotonin reuptake inhibitors, intentional self-harm, initial encounter (principal); N39.0 Urinary tract infection, site not specified; T40.2X2A Poisoning by other opioids, intentional self-harm, initial encounter; G25.70 Drug induced movement disorder, unspecified; R00.0 Tachycardia, unspecified; B96.20 Unspecified Escherichia coli [E. coli] as the cause of diseases classified elsewhere; R11.2 Nausea with vomiting, unspecified; R00.2 Palpitations; F32.9 Major depressive disorder, single episode, unspecified; F41.9 Anxiety disorder, unspecified; Z79.899 Other long term (current) drug therapy; Z81.8 Family history of other mental and behavioral disorders
CPT/HCPCS: 36415; 70551; 80048; 80053; 80306; 80307; 80320; 80329; 81001; 81025; 83690; 83735; 84100; 84443; 85025; 87086; 87150; 87181; 93005; 96374; 97161; 99285; A9270; J2060; J7120; 81003

== ENCOUNTER 2020-04-22 00:47 | Outpatient (CLI) | payer OTHER | END 2020-04-22 00:48 | disposition critical access hospital (66) | LOC: EMS 00:47 | PROVIDERS: ATTEND Surgery | DX: R45.851 Suicidal ideations (principal) | CPT/HCPCS: A0425; A0429 ==

== ENCOUNTER 2020-04-22 01:06 | Emergency (ER) | payer OTHER ==
--- NOTE | 2020-04-22 01:08 | ED Physician Documentation ---
PD HPI MHE - Stated complaint Stated Complaint: SI - History obtained from History obtained from: Patient, EMS - History of Present Illness Primary symptom: Suicidal ideation, Depression Timing - onset: Enter time (22:00) Contributing factors: Other (no apparent inciting event) Recently seen: Not recently seen - Additional information Additional information: GALI. Patient says she had a normal day today but at approximately 10 PM tonight, she had sudden overwhelming sadness and began crying uncontrollably. She then had vague suicidal thoughts, such as feeling that she wanted to go to sleep and not wake up; she says she confided in a friend that she was considering overdosing on her medication. Although she did not feel that she was going to act on this impulse, she called 911 because she was hospitalized last year for overdose and she did not want things to get out of her control like they had last year. Review of Systems Cardiac: reports: Reviewed and negative Respiratory: reports: Reviewed and negative GI: reports: Reviewed and negative : denies: Now EGA Neurologic: reports: Reviewed and negative Psychiatric: reports: Depressed. denies: Homicidal, Hallucinations, Delusions PD PAST MEDICAL HISTORY - Past Medical History Cardiovascular: None Respiratory: None Neuro: None Endocrine/Autoimmune: None GI: None APPEALS BOARD REFEREE: Endometriosis : None HEENT: None Psych: Depression, Anxiety Musculoskeletal: None Derm: None - Past Surgical History General: Appendectomy /APPEALS BOARD REFEREE: Other HEENT: Tonsil/Adenoidectomy - Present Medications Home Medications: Ambulatory Orders Medication Instructions Recorded Confirmed Levonorgestrel-Ethin Estradiol 04/22/20 [Levonor-Eth Estrad 0.15-0.03] Sertraline [Zoloft] DAILY 04/22/20 - Allergies Allergies/Adverse Reactions: Allergies Allergy/AdvReac Type Severity Reaction Status Date / Time pollen extracts AdvReac Mild Unknown Verified 07/03/19 17:48 murrell pepper AdvReac Edema Uncoded 07/05/19 15:09 - Social History Does the pt smoke?: No Smoking Status: Never smoker Does the pt drink ETOH?: No Does the pt have substance abuse?: No PD ED PE NORMAL - Vitals Vital signs reviewed: Yes - General General: Alert and oriented X 3, No acute distress, Well developed/nourished, Other (calm, cooperative, polite, conversant and appropriate) - HEENT HEENT: PERRL, EOMI - Cardiac Cardiac: RRR, No murmur - Respiratory Respiratory: No respiratory distress, Clear bilaterally - Abdomen Abdomen: Soft, Non tender - Neuro Neuro: Alert and oriented X 3 Eye Opening: Spontaneous Motor: Obeys Commands Verbal: Oriented GCS Score: 15 - Psych Psych: Normal mood, Normal affect Results - Vitals Vitals: Vital Signs - 24 hr 04/22/20 04/22/20 04/22/20 01:10 07:22 15:09 Temperature 37.2 C 36.1 C L 36.5 C Heart Rate 120 H 108 H 155 H Respiratory 19 16 16 Rate Blood Pressure 143/95 H 108/67 112/60 O2 Saturation 99 100 99 04/22/20 17:05 Temperature 37.0 C Heart Rate 95 Respiratory 18 Rate Blood Pressure 104/74 O2 Saturation 94 Oxygen O2 Source Room air - Labs Labs: Laboratory Tests 04/22/20 04/22/20 04/22/20 01:30 01:30 01:30 WBC RBC Hgb Hct MCV MCH MCHC RDW Plt Count MPV Neut # (Auto) Lymph # (Auto) Walker # (Auto) Eos # (Auto) Baso # (Auto) Absolute Nucleated RBC Nucleated RBC % Sodium Potassium Chloride Carbon Dioxide Anion Gap BUN Creatinine Estimated GFR (MDRD) Glucose Calcium TSH Urine Color YELLOW Urine Clarity CLEAR Urine pH 5.0 Ur Specific Hennessey 1.020 1.020 Urine Protein NEGATIVE Urine Glucose (UA) NEGATIVE Urine Ketones NEGATIVE Urine Occult Blood NEGATIVE Urine Nitrite NEGATIVE Urine Bilirubin NEGATIVE Urine Urobilinogen 0.2 (NORMAL) Ur Leukocyte Esterase NEGATIVE Ur Microscopic Review NOT INDICATED Urine Culture Comments NOT INDICATED Urine HCG, Qual NEGATIVE Salicylates Urine Opiates Screen NEGATIVE Ur Oxycodone Screen NEGATIVE Urine Methadone Screen NEGATIVE Ur Propoxyphene Screen NEGATIVE Acetaminophen Ur Barbiturates Screen NEGATIVE Ur Tricyclics Screen NEGATIVE Ur Phencyclidine Scrn NEGATIVE Ur Amphetamine Screen NEGATIVE U Methamphetamines Scrn NEGATIVE U Benzodiazepines Scrn NEGATIVE Urine Cocaine Screen NEGATIVE U Cannabinoids Screen NEGATIVE Ethyl Alcohol 04/22/20 04/22/20 04/22/20 01:34 01:34 01:34 WBC 11.6 H RBC 4.46 Hgb 13.4 Hct 38.4 MCV 86.1 MCH 30.0 MCHC 34.9 RDW 12.0 Plt Count 239 MPV 11.5 H Neut # (Auto) 8.2 H Lymph # (Auto) 2.5 Walker # (Auto) 0.7 Eos # (Auto) 0.0 Baso # (Auto) 0.1 Absolute Nucleated RBC 0.00 Nucleated RBC % 0.0 Sodium 139 Potassium 3.7 Chloride 107 Carbon Dioxide 20 L Anion Gap 12.0 BUN 12 Creatinine 0.7 Estimated GFR (MDRD) 103 Glucose 102 H Calcium 9.1 TSH 2.59 Urine Color Urine Clarity Urine pH Ur Specific H[place]sey Urine Protein Urine Glucose (UA) Urine Ketones Urine Occult Blood Urine Nitrite Urine Bilirubin Urine Urobilinogen Ur Leukocyte Esterase Ur Microscopic Review Urine Culture Comments Urine HCG, Qual Salicylates < 6.0 Urine Opiates Screen Ur Oxycodone Screen Urine Methadone Screen Ur Propoxyphene Screen Acetaminophen < 10 L Ur Barbiturates Screen Ur Tricyclics Screen Ur Phencyclidine Scrn Ur Amphetamine Screen U Methamphetamines Scrn U Benzodiazepines Scrn Urine Cocaine Screen U Cannabinoids Screen Ethyl Alcohol < 5.0 PD MEDICAL DECISION MAKING - ED course Complexity details: reviewed old records, reviewed results, re-evaluated patient, considered differential, d/w patient ED course: patient cleared for telepsych consult. She says she would feel comfortable with d/c home if this is recommendation but also would be agreeable to admission if needed/recommended. Signed out at end of my shift to Dr. Coffman pending telepsych consult and disposition Departure - Departure Disposition: 65 Psych Hosp/Unit DC/Xfer Clinical Impression: Depression, Suicidal ideation Condition: Stable
[2020-04-22 01:32] LABS: MUDS CUTOFF CONCENTRATIONS CUTOFF CONC BELOW:
[2020-04-22 01:33] LABS: BILIRUBIN,URINE NEGATIVE (NEGATIVE); GLUCOSE, URINE (UA) NEGATIVE (NEGATIVE); KETONES,URINE (UA) NEGATIVE (NEGATIVE); LEUKOCYTE ESTERASE, URINE NEGATIVE (NEGATIVE); NITRITE,URINE NEGATIVE (NEGATIVE); OCCULT BLOOD,URINE NEGATIVE (NEGATIVE); PROTEIN,URINE NEGATIVE (NEGATIVE); UROBILINOGEN,URINE 0.2 (NORMAL) E.U./dL (NORMAL)
[2020-04-22 01:35] LABS: CLARITY,URINE CLEAR (CLEAR); HCG UR QUAL NEGATIVE
[2020-04-22 01:38] LABS: BASOPHILS # (AUTO) 0.1 10^3/uL (0.0-0.1); BASOPHILS % (AUTO) 0.6 %; EOSINOPHILS % (AUTO) 0.2 %; HGB - HEMOGLOBIN 13.4 g/dL (12.0-16.0); LYMPHOCYTES # (AUTO) 2.5 10^3/uL (1.5-3.5); LYMPHOCYTES % (AUTO) 21.9 %; MEAN CORPUSCULAR HGB CONC 34.9 g/dL (32.0-36.0); MEAN CORPUSCULAR VOLUME 86.1 fL (81.0-99.0); MEAN PLATELET VOLUME 11.5 fL (7.9-10.8); MONOCYTES # (AUTO) 0.7 10^3/uL (0.0-1.0); MONOCYTES % (AUTO) 5.8 %; NEUTROPHILS # (AUTO) 8.2 10^3/uL (1.5-6.6); NEUTROPHILS % (AUTO) 71.1 %; PLT - PLATELET COUNT 239 10^3/uL (130-450); RED BLOOD COUNT 4.46 10^6/uL (4.20-5.40); WHITE BLOOD COUNT 11.6 x10^3/uL (4.8-10.8)
[2020-04-22 01:44] LABS: AMPHETAMINE SCREEN,URINE NEGATIVE (NEGATIVE); BENZODIAZEPINES SCREEN, URINE NEGATIVE (NEGATIVE); COCAINE SCREEN URINE NEGATIVE (NEGATIVE); METHADONE SCREEN, URINE NEGATIVE (NEGATIVE); METHAMPHETAMINES SCREEN, URINE NEGATIVE (NEGATIVE); OPIATE SCREEN, URINE NEGATIVE (NEGATIVE); OXYCODONE SCREEN, URINE NEGATIVE (NEGATIVE); PROPOXYPHENE SCREEN, URINE NEGATIVE (NEGATIVE); TRICYCLIC ANTIDEPRESSANT,URINE NEGATIVE (NEGATIVE)
[2020-04-22 01:50] LABS: ACETAMINOPHEN < 10 ug/mL (10-30); BUN - BLOOD UREA NITROGEN 12 mg/dL (6-20); CALCIUM 9.1 mg/dL (8.5-10.3); CARBON DIOXIDE - CO2 20 mmol/L (21-32); CHLORIDE 107 mmol/L (101-111); CREATININE 0.7 mg/dL (0.4-1.0); GLUCOSE 102 mg/dL (70-100); SALICYLATE < 6.0 mg/dL; SODIUM 139 mmol/L (135-145)
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
[2020-04-22] MEDS ORDERED: LORazepam 1 MG TABLET PO STA (15:17)
--- NOTE | 2020-04-22 15:25 | ED Physician Documentation ---
ED Addendum - Addendum Addendum: 04/22/20 15:24 Care is assumed on change of shift. The patient had been resting comfortably in the room. No apparent distress. She ate breakfast. She was seen by social work after having a tele-psych consultation. The opinion from tele-psychiatry was the patient should be placed in the hospital because of risk concern for self-harm. Social work talked with her and at this point there will be contacting [facility] to see about transfer to their. First they were going to consult with her command to see if that was the disposition the command was wanting as well
[2020-04-22] MEDS ORDERED: LORazepam 0.5 MG TABLET PO STA (19:07)
[2020-04-22 20:29] VITALS: BP 136/81
--- NOTE | 2020-04-22 20:31 | ED Physician Documentation ---
ED Addendum - Addendum Addendum: I was asked to give the patient medication for anxiety. Ativan was given as she has had this in the past. She does appear to have a chronic tachycardia as well. This was present on prior admissions. Departure - Departure Disposition: 65 Psych Hosp/Unit DC/Xfer Clinical Impression: Suicidal ideation, Tachycardia Depression Qualifiers: Depression Type: major depressive disorder Major depression recurrence: recurrent Active/Remission status: currently active Major depression episode severity: severe Psychotic features: without psychotic features Qualified Code(s): F33.2 - Major depressive disorder, recurrent severe without psychotic features Condition: Stable
== END 2020-04-22 20:30 ==
LOC: EDUNIT# → ED 01:06
DX: R45.851 Suicidal ideations (principal); F33.2 Major depressive disorder, recurrent severe without psychotic features; R00.0 Tachycardia, unspecified
CPT/HCPCS: 36415; 80048; 80320; 80329; 81003; 81025; 84443; 85025; 93005; 99283; 99285; A9270; G0426; J8499; 80306; 80307; 81001; 87086

== ENCOUNTER 2020-06-21 14:53 | Outpatient (CLI) | payer OTHER ==
[2020-06-21 15:33] VITALS: BP 112/63
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
== END 2020-06-21 14:54 | disposition home or self-care (01) ==
LOC: SC 14:53
PROVIDERS: ATTEND Nurse Practitioner Family
DX: R51.9 Headache, unspecified (principal); G47.8 Other sleep disorders; R41.89 Other symptoms and signs involving cognitive functions and awareness; G47.10 Hypersomnia, unspecified; E66.3 Overweight; Z68.26 Body mass index [BMI] 26.0-26.9, adult
CPT/HCPCS: 99203; 99212

== ENCOUNTER 2020-06-23 18:44 | Inpatient (IN) | payer OTHER ==
[2020-06-23] MEDS ORDERED: SODIUM CHLORIDE 0.9% 1,000 ML IV STA (19:03)
[2020-06-23 19:05] LABS: MUDS CUTOFF CONCENTRATIONS CUTOFF CONC BELOW:
[2020-06-23 19:07] LABS: BILIRUBIN,URINE NEGATIVE (NEGATIVE); GLUCOSE, URINE (UA) NEGATIVE (NEGATIVE); KETONES,URINE (UA) NEGATIVE (NEGATIVE); LEUKOCYTE ESTERASE, URINE NEGATIVE (NEGATIVE); NITRITE,URINE NEGATIVE (NEGATIVE); OCCULT BLOOD,URINE NEGATIVE (NEGATIVE); PH,URINE 6.5 PH (5.0-7.5); PROTEIN,URINE NEGATIVE (NEGATIVE); UROBILINOGEN,URINE 0.2 (NORMAL) E.U./dL (NORMAL)
[2020-06-23] MEDS ORDERED: LORazepam 2 MG/ML VIAL IVP STA ×3 (19:08→20:59)
[2020-06-23 19:10] LABS: CLARITY,URINE CLEAR (CLEAR); HCG UR QUAL NEGATIVE
--- NOTE | 2020-06-23 19:10 | ED Physician Documentation ---
PD HPI MHE - Stated complaint Stated Complaint: MED OVERDOSE - Chief complaint Chief Complaint: MHE - History obtained from History obtained from: Patient - Additional information Additional information: 24-year-old woman with history of depression and recurrent suicide attempts presents after taking 90 x 100 mg Zoloft tablets at 5 PM tonight. She subsequently got sick and vomited several times. Did not see any pill fragments, feels anxious now. She has a history of doing this before and was hospitalized for 5 days in the ICU here in April for serotonin syndrome related to same. Subsequently was transferred to 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 Review of Systems Ten Systems: 10 systems reviewed and negative Constitutional: reports: Reviewed and negative Eyes: reports: Reviewed and negative Throat: reports: Reviewed and negative Cardiac: reports: Reviewed and negative Respiratory: reports: Reviewed and negative GI: reports: Nausea, Vomiting PD PAST MEDICAL HISTORY - Past Medical History Cardiovascular: None Respiratory: None Neuro: None Endocrine/Autoimmune: None GI: None ARMATURE REPAIRER: Endometriosis : None HEENT: None Psych: Depression, Anxiety Musculoskeletal: None Derm: None - Past Surgical History Past Surgical History: Yes General: Appendectomy /ARMATURE REPAIRER: Other HEENT: Tonsil/Adenoidectomy - Present Medications Home Medications: Ambulatory Orders Medication Instructions Recorded Confirmed Levonorgestrel-Ethin Estradiol 1 04/22/20 [Levonor-Eth Estrad 0.15-0.03] Sertraline [Zoloft] 100 mg ORAL DAILY 04/22/20 06/23/20 Prazosin HCl [Minipress] 10 mg PO DAILY 06/23/20 06/23/20 - Allergies Allergies/Adverse Reactions: Allergies Allergy/AdvReac Type Severity Reaction Status Date / Time pollen extracts AdvReac Mild Unknown Verified 06/23/20 19:18 murrell pepper AdvReac Edema Uncoded 06/23/20 19:18 - Social History Does the pt smoke?: No Smoking Status: Never smoker Does the pt drink ETOH?: No Does the pt have substance abuse?: No - Immunizations Immunizations are current?: Yes - POLST Patient has POLST: No PD ED PE NORMAL - Vitals Vital signs reviewed: Yes - General General: Alert and oriented X 3, No acute distress - HEENT HEENT: Other (dilated pupils) - Neck Neck: Supple, no meningeal sign, No bony TTP - Cardiac Cardiac: Other - Respiratory Respiratory: No respiratory distress, Clear bilaterally - Abdomen Abdomen: Normal bowel sounds, Soft, Non tender - Back Back: No CVA TTP, No spinal TTP - Derm Derm: Normal color, Warm and dry - Extremities Extremities: No edema, No calf tenderness / cord, Other (4+ patellar reflexes, 3 beats clonus at ankles) - Neuro Neuro: Alert and oriented X 3, Normal speech Results - Vitals Vitals: Vital Signs - 24 hr 06/23/20 06/23/20 06/23/20 18:52 19:17 19:36 Temperature 37 C 37.1 C Heart Rate 117 H 120 H 114 H Respiratory 24 21 27 H Rate Blood Pressure 135/98 H 155/89 H 142/102 H O2 Saturation 100 100 100 06/23/20 06/23/20 06/23/20 19:50 20:00 20:15 Temperature 37.1 C Heart Rate 119 H 127 H 113 H Respiratory 31 H 26 H 29 H Rate Blood Pressure 140/95 H 133/81 H 137/87 H O2 Saturation 100 100 100 Oxygen O2 Source Room air - EKG (time done) 1912 Rate: Rate (enter#) (111) Rhythm: Sinus tachycardia [place]: Normal Intervals: Normal OK. No: Prolonged QT QRS: Normal Ischemia: Normal ST segments - Labs Labs: Laboratory Tests 06/23/20 06/23/20 06/23/20 19:00 19:05 19:05 WBC 12.4 H RBC 4.89 Hgb 14.7 Hct 43.7 MCV 89.4 MCH 30.1 MCHC 33.6 RDW 12.1 Plt Count 337 MPV 11.7 H Neut # (Auto) 8.0 H Lymph # (Auto) 3.5 Kimball # (Auto) 0.7 Eos # (Auto) 0.0 Baso # (Auto) 0.1 Absolute Nucleated RBC 0.00 Nucleated RBC % 0.0 Sodium 140 Potassium 3.7 Chloride 105 Carbon Dioxide 21 Anion Gap 14.0 H BUN 13 Creatinine 0.7 Estimated GFR (MDRD) 103 Glucose 116 H Calcium 9.5 Magnesium 2.2 Total Bilirubin 0.8 AST 21 ALT 17 Alkaline Phosphatase 57 Total Protein 8.6 H Albumin 5.0 Globulin 3.6 Albumin/Globulin Ratio 1.4 Lipase 32 TSH Urine Color YELLOW Urine Clarity CLEAR Urine pH 6.5 Ur Specific [place] 1.020 Urine Protein NEGATIVE Urine Glucose (UA) NEGATIVE Urine Ketones NEGATIVE Urine Occult Blood NEGATIVE Urine Nitrite NEGATIVE Urine Bilirubin NEGATIVE Urine Urobilinogen 0.2 (NORMAL) Ur Leukocyte Esterase NEGATIVE Ur Microscopic Review NOT INDICATED Urine Culture Comments NOT INDICATED Urine HCG, Qual NEGATIVE Nasal Adenovirus (PCR) Nasal B. parapertussis DNA (PCR) Nasal Coronavir 229E PCR Nasal Coronavir HKU1 PCR Nasal Coronavir NL63 PCR Nasal Coronavir OC43 PCR Nasal Enterovir/Rhinovir PCR Nasal Influenza B PCR Nasal Influenza A PCR Nasal Parainfluen 1 PCR Nasal Parainfluen 2 PCR Nasal Parainfluen 3 PCR Nasal Parainfluen 4 PCR Nasal RSV (PCR) Nasal B.pertussis DNA PCR Nasal C.pneumoniae (PCR) Bobby Human Metapneumo PCR Nasal M.pneumoniae (PCR) Nasal SARS-CoV-2 (PCR) Salicylates < 6.0 Urine Opiates Screen NEGATIVE Ur Oxycodone Screen NEGATIVE Urine Methadone Screen NEGATIVE Ur Propoxyphene Screen NEGATIVE Acetaminophen < 10 L Ur Barbiturates Screen NEGATIVE Ur Tricyclics Screen NEGATIVE Ur Phencyclidine Scrn NEGATIVE Ur Amphetamine Screen NEGATIVE U Methamphetamines Scrn NEGATIVE U Benzodiazepines Scrn NEGATIVE Urine Cocaine Screen NEGATIVE U Cannabinoids Screen NEGATIVE Ethyl Alcohol < 5.0 06/23/20 06/23/20 19:05 19:15 WBC RBC Hgb Hct MCV MCH MCHC RDW Plt Count MPV Neut # (Auto) Lymph # (Auto) Kimball # (Auto) Eos # (Auto) Baso # (Auto) Absolute Nucleated RBC Nucleated RBC % Sodium Potassium Chloride Carbon Dioxide Anion Gap BUN Creatinine Estimated GFR (MDRD) Glucose Calcium Magnesium Total Bilirubin AST ALT Alkaline Phosphatase Total Protein Albumin Globulin Albumin/Globulin Ratio Lipase TSH 1.36 Urine Color Urine Clarity Urine pH Ur Specific [place] Urine Protein Urine Glucose (UA) Urine Ketones Urine Occult Blood Urine Nitrite Urine Bilirubin Urine Urobilinogen Ur Leukocyte Esterase Ur Microscopic Review Urine Culture Comments Urine HCG, Qual Nasal Adenovirus (PCR) NOT DETECTED Nasal B. parapertussis DNA (PCR) NOT DETECTED Nasal Coronavir 229E PCR NOT DETECTED Nasal Coronavir HKU1 PCR NOT DETECTED Nasal Coronavir NL63 PCR NOT DETECTED Nasal Coronavir OC43 PCR NOT DETECTED Nasal Enterovir/Rhinovir PCR NOT DETECTED Nasal Influenza B PCR NOT DETECTED Nasal Influenza A PCR NOT DETECTED Nasal Parainfluen 1 PCR NOT DETECTED Nasal Parainfluen 2 PCR NOT DETECTED Nasal Parainfluen 3 PCR NOT DETECTED Nasal Parainfluen 4 PCR NOT DETECTED Nasal RSV (PCR) NOT DETECTED Nasal B.pertussis DNA PCR NOT DETECTED Nasal C.pneumoniae (PCR) NOT DETECTED Bobby Human Metapneumo PCR NOT DETECTED Nasal M.pneumoniae (PCR) NOT DETECTED Nasal SARS-CoV-2 (PCR) NOT DETECTED Salicylates Urine Opiates Screen Ur Oxycodone Screen Urine Methadone Screen Ur Propoxyphene Screen Acetaminophen Ur Barbiturates Screen Ur Tricyclics Screen Ur Phencyclidine Scrn Ur Amphetamine Screen U Methamphetamines Scrn U Benzodiazepines Scrn Urine Cocaine Screen U Cannabinoids Screen Ethyl Alcohol PD MEDICAL DECISION MAKING - ED course ED course: Spoke with poison control after initial evaluation, they do not feel there is a role for charcoal at this juncture. Recommend watching for muscle rigidity and elevated temperatures. Treat primarily with benzodiazepines. Needs a least 8 to 12 hours of ED observation but low suspicion to put her in the ICU if worsening. Also watch for QTC prolongation. She was examined several times over the next couple of hours, she did develop some nausea and diarrhea which were he did successfully with low-dose Phenergan and Imodium, I wanted to avoid Zofran given the prolonged QT potential. She states became more tachycardic though and tremulous in the lower extremities with sustained clonus and as such the decision to admit was made and I spoke with Dr. Lopez for admission at 8:30 PM. Her mental status remains normal. - Critical Care Time(min): 35 Time Includes: Direct patient care, Review records, Reassess patient, Document care, Coordinate care, Medical consult Data interpretation: Labs, Pulse ox Procedures included in critical care time: Peripheral IV Procedures excluded from critical care time: EKG Departure - Departure Disposition: 66 [facility] DC/Xfer Clinical Impression: Serotonin syndrome, Suicidal ideation Medication overdose Qualifiers: Encounter type: initial encounter Injury intent: intentional self-harm Qualified Code(s): T50.902A - Poisoning by unspecified drugs, medicaments and biological substances, intentional self-harm, initial encounter Condition: Serious
[2020-06-23 19:15] LABS: BASOPHILS # (AUTO) 0.1 10^3/uL (0.0-0.1); BASOPHILS % (AUTO) 0.9 %; EOSINOPHILS % (AUTO) 0.2 %; HGB - HEMOGLOBIN 14.7 g/dL (12.0-16.0); LYMPHOCYTES # (AUTO) 3.5 10^3/uL (1.5-3.5); LYMPHOCYTES % (AUTO) 28.5 %; MEAN CORPUSCULAR HEMOGLOBIN 30.1 pg (27.0-31.0); MEAN CORPUSCULAR HGB CONC 33.6 g/dL (32.0-36.0); MEAN CORPUSCULAR VOLUME 89.4 fL (81.0-99.0); MEAN PLATELET VOLUME 11.7 fL (7.9-10.8); MONOCYTES # (AUTO) 0.7 10^3/uL (0.0-1.0); MONOCYTES % (AUTO) 5.5 %; NEUTROPHILS % (AUTO) 64.4 %; PLT - PLATELET COUNT 337 10^3/uL (130-450); RED BLOOD COUNT 4.89 10^6/uL (4.20-5.40); RED CELL DISTRIBUTION WIDTH 12.1 % (12.0-15.0); WHITE BLOOD COUNT 12.4 x10^3/uL (4.8-10.8)
[2020-06-23 19:20] LABS: AMPHETAMINE SCREEN,URINE NEGATIVE (NEGATIVE); BENZODIAZEPINES SCREEN, URINE NEGATIVE (NEGATIVE); COCAINE SCREEN URINE NEGATIVE (NEGATIVE); METHADONE SCREEN, URINE NEGATIVE (NEGATIVE); METHAMPHETAMINES SCREEN, URINE NEGATIVE (NEGATIVE); OPIATE SCREEN, URINE NEGATIVE (NEGATIVE); OXYCODONE SCREEN, URINE NEGATIVE (NEGATIVE); PROPOXYPHENE SCREEN, URINE NEGATIVE (NEGATIVE); TRICYCLIC ANTIDEPRESSANT,URINE NEGATIVE (NEGATIVE)
[2020-06-23 19:33] LABS: ACETAMINOPHEN < 10 ug/mL (10-30); ALBUMIN/GLOBULIN RATIO 1.4 (1.0-2.2); ALKALINE PHOSPHATASE 57 IU/L (42-121); ALT ALANINE AMINOTRANSFERASE 17 IU/L (10-60); AST ASPARTATE AMINOTRANSFERASE 21 IU/L (10-42); BILIRUBIN,TOTAL 0.8 mg/dL (0.2-1.0); BUN - BLOOD UREA NITROGEN 13 mg/dL (6-20); CALCIUM 9.5 mg/dL (8.5-10.3); CARBON DIOXIDE - CO2 21 mmol/L (21-32); CHLORIDE 105 mmol/L (101-111); CREATININE 0.7 mg/dL (0.4-1.0); GLUCOSE 116 mg/dL (70-100); LIPASE 32 U/L (22-51); MAGNESIUM 2.2 mg/dL (1.7-2.8); SALICYLATE < 6.0 mg/dL; SODIUM 140 mmol/L (135-145); TOTAL PROTEIN 8.6 g/dL (6.7-8.2)
[2020-06-23] MEDS ORDERED: LOPERAMIDE 2 MG CAPSULE PO STA (19:37)
[2020-06-23] MEDS ORDERED: PROMETHAZINE INJ 12.5 MG in SODIUM CHLORIDE 0.9% 50 ML IV STA (19:37)
[2020-06-23] MEDS ORDERED: PROMETHAZINE 25 MG/1 ML VIAL ONE (19:50)
[2020-06-23 20:23] LABS: C. PNEUMONIAE- RESP PCR PANEL NOT DETECTED
[2020-06-23] MEDS ORDERED: SODIUM CHLORIDE FLUSH 0.9% 10 ML SYRINGE IVP PRN (20:35)
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
[2020-06-23] MEDS ORDERED: SODIUM CHLORIDE 0.9% 1,000 ML IV SCH (21:00)
[2020-06-23] MEDS ORDERED: ESMOLOL 100 MG/10 ML VIAL IVP ONE (22:19)
[2020-06-23] MEDS ORDERED: IBUPROFEN 400 MG TABLET PO PRN (22:19)
[2020-06-23] MEDS ORDERED: PROMETHAZINE 25 MG TABLET PO PRN (22:21)
[2020-06-23] MEDS: SODIUM CHLORIDE 0.9% 1,000 ML IV SCH (22:33)
[2020-06-23] MEDS: LORazepam 2 MG/ML VIAL IVP PRN (22:33)
[2020-06-23] MEDS: SODIUM CHLORIDE FLUSH 0.9% 10 ML SYRINGE IVP SCH (22:34)
[2020-06-24] MEDS: LORazepam 2 MG/ML VIAL IVP PRN ×3 (00:48→05:48)
[2020-06-24 06:21] LABS: BASOPHILS # (AUTO) 0.1 10^3/uL (0.0-0.1); BASOPHILS % (AUTO) 0.4 %; EOSINOPHILS % (AUTO) 0.3 %; HGB - HEMOGLOBIN 12.4 g/dL (12.0-16.0); LYMPHOCYTES # (AUTO) 2.8 10^3/uL (1.5-3.5); LYMPHOCYTES % (AUTO) 20.7 %; MEAN CORPUSCULAR HEMOGLOBIN 30.8 pg (27.0-31.0); MEAN CORPUSCULAR HGB CONC 34.6 g/dL (32.0-36.0); MEAN CORPUSCULAR VOLUME 88.8 fL (81.0-99.0); MEAN PLATELET VOLUME 12.5 fL (7.9-10.8); MONOCYTES # (AUTO) 0.9 10^3/uL (0.0-1.0); MONOCYTES % (AUTO) 6.8 %; NEUTROPHILS # (AUTO) 9.8 10^3/uL (1.5-6.6); NEUTROPHILS % (AUTO) 71.6 %; PLT - PLATELET COUNT 219 10^3/uL (130-450); RED BLOOD COUNT 4.03 10^6/uL (4.20-5.40); WHITE BLOOD COUNT 13.7 x10^3/uL (4.8-10.8)
[2020-06-24 06:27] LABS: ALBUMIN 4.2 g/dL (3.2-5.5); ALBUMIN/GLOBULIN RATIO 1.5 (1.0-2.2); BILIRUBIN,TOTAL 0.7 mg/dL (0.2-1.0); CALCIUM 8.7 mg/dL (8.5-10.3); CREATININE 0.6 mg/dL (0.4-1.0)
[2020-06-24] MEDS: SODIUM CHLORIDE 0.9% 1,000 ML IV SCH ×3 (06:50→22:44)
--- NOTE | 2020-06-24 08:10 | PHARMACY PROGRESS NOTE ---
- Best Possible Medication History Admit Date and Time: 06/23/202034 Processed by: Pharmacy Medication History completed: Yes Patient Interview: Completed Secondary Source(s): Physician records (PATIENT INTERVIEWED BY PHARMACY. PATIENT ABLE TO CONFIRM HOME MEDICATIONS ), Pharmacy records, Insurance records As the person ultimately responsible for medication therapy, providers are able to order a medication from an existing home medication list in [facility] via the "Reconcile Routine" prior to Confirmation of that medication by academic support assistant. Such practice is discouraged except when the physician, in their clinical judgment, deems that a medical need exists for a medication without regard to previous use.
[2020-06-24] MEDS: ENOXAPARIN 40 MG/0.4 ML SYRINGE SUBQ SCH (09:22)
[2020-06-24] MEDS: SODIUM CHLORIDE FLUSH 0.9% 10 ML SYRINGE IVP SCH ×2 (09:23→17:15)
--- NOTE | 2020-06-24 13:22 | PROVIDER PROGRESS NOTE ---
Assessment/Plan - Problem List (1) Medication overdose Qualifiers: Encounter type: subsequent encounter Injury intent: intentional self-harm Qualified Code(s): T50.902D - Poisoning by unspecified drugs, medicaments and biological substances, intentional self-harm, subsequent encounter Assessment/Plan: She is on one-to-one precautions in the ICU. When she is medically stabilized, will request social work to intervene r egarding overdose attempt (2) Suicidal ideation Assessment/Plan: As above. She reported to the admitting Steel Turner that her mother has bipolar and depression. Her sister also has depression. Her father has multiple medical problems including depression. All three family members have attempted suicide in the past. (3) Serotonin syndrome Assessment/Plan: Poison control was involved and guided the admitting director of assessment. We are watching QT syndrome, and is been shorter on each EKG. We will not need more twelve-lead EKGs. Her muscle tremor and jitteriness have appeared to resolved, she did need Ativan and therefore is sleepy today. Fever is not increasing. Monitor for this. Heart rate is now down to 100-1 10 in sinus tachycardia, she got esmolol several doses IV push. Continue telemetr. Remain in the ICU. (4) Leukocytosis Assessment/Plan: White blood count was 12 at admission, today up to 13. There are no overt signs of infection with normal chest x-ray urinalysis and no complaints. This is probably a phase reactant from the stress - Current Meds Current Meds: Current Medications Generic Name Dose Route Start Last Admin Trade Name Freq PRN Reason Stop Dose Admin Enoxaparin Sodium 40 mg 06/24/20 09:00 06/24/20 09:22 Enoxaparin 40 Mg/0.4 Ml Syringe SUBQ 40 mg DAILY VALENTIN Administration Sodium Chloride 1,000 mls @ 125 mls/hr 06/23/20 21:00 06/24/20 06:50 Normal Saline 0.9% IV 125 mls/hr .Q8H VALENTIN Administration Lorazepam 1 mg 06/23/20 20:43 06/24/20 05:48 Lorazepam 2 Mg/Ml Vial IVP 1 mg Q2H PRN Administration Anxiety Sodium Chloride 10 ml 06/24/20 01:00 06/24/20 09:23 Sodium Chloride Flush 0.9% 10 Ml Syringe IVP Not Given 0100,0900,1700 VALENTIN Sodium Chloride 10 ml 06/23/20 20:35 06/23/20 23:12 Sodium Chloride Flush 0.9% 10 Ml Syringe IVP 10 ml PRN PRN Administration NEEDED PER PROVIDER ORDERS - Lab Result Fish Bone Diagrams: 06/24/20 05:40 06/24/20 05:40 Subjective - Subjective Patient Reports: Resting Comfortably Nursing Reports: Other (The nurse had to feed her, she was somnolent. She had muscle shakiness when on bedside commode) Objective Vital Signs: Vital Signs - 24 hr 06/23/20 06/23/20 06/23/20 18:52 19:17 19:36 Temperature 37 C 37.1 C Heart Rate 117 H 120 H 114 H Heart Rate [ Monitoring electrodes] Respiratory 24 21 27 H Rate Blood Pressure 135/98 H 155/89 H 142/102 H Blood Pressure [Right Brachial artery] O2 Saturation 100 100 100 06/23/20 06/23/20 06/23/20 19:50 20:00 20:15 Temperature 37.1 C Heart Rate 119 H 127 H 113 H Heart Rate [ Monitoring electrodes] Respiratory 31 H 26 H 29 H Rate Blood Pressure 140/95 H 133/81 H 137/87 H Blood Pressure [Right Brachial artery] O2 Saturation 100 100 100 06/23/20 06/23/20 06/23/20 20:33 20:39 20:51 Temperature Heart Rate 149 H 158 H 126 H Heart Rate [ Monitoring electrodes] Respiratory 30 H 43 H 27 H Rate Blood Pressure 152/96 H Blood Pressure [Right Brachial artery] O2 Saturation 100 100 99 06/23/20 06/23/20 06/23/20 21:00 21:35 21:54 Temperature 36.8 C Heart Rate 141 H 153 H Heart Rate [ 128 H Monitoring electrodes] Respiratory 27 H 26 H 25 H Rate Blood Pressure 133/85 H 154/71 H Blood Pressure 137/95 H [Right Brachial artery] O2 Saturation 99 100 99 06/23/20 06/23/20 06/24/20 22:00 23:00 00:00 Temperature 37.2 C Heart Rate Heart Rate [ 133 H 114 H 123 H Monitoring electrodes] Respiratory 32 H 27 H 21 Rate Blood Pressure Blood Pressure 140/92 H 140/81 H 137/76 H [Right Brachial artery] O2 Saturation 99 99 100 1206/24/20 06/24/20 01:00 02:00 03:00 Temperature Heart Rate Heart Rate [ 117 H 121 H 113 H Monitoring electrodes] Respiratory 20 26 H 25 H Rate Blood Pressure Blood Pressure 136/95 H 129/92 H 111/81 H [Right Brachial artery] O2 Saturation 97 99 96 06/24/20 06/24/20 06/24/20 04:00 05:00 06:00 Temperature 37.0 C Heart Rate Heart Rate [ 112 H 102 H 108 H Monitoring electrodes] Respiratory 17 25 H 23 Rate Blood Pressure Blood Pressure 125/87 H 120/82 H 130/87 H [Right Brachial artery] O2 Saturation 99 98 99 06/24/20 06/24/20 06/24/20 06:54 08:00 09:00 Temperature 37.1 C 36.9 C Heart Rate Heart Rate [ 110 H 100 96 Monitoring electrodes] Respiratory 24 23 24 Rate Blood Pressure Blood Pressure 130/80 127/78 110/67 [Right Brachial artery] O2 Saturation 99 98 98 06/24/20 06/24/20 06/24/20 10:00 11:00 12:00 Temperature 37.1 C Heart Rate Heart Rate [ 98 119 H 100 Monitoring electrodes] Respiratory 20 22 18 Rate Blood Pressure Blood Pressure 105/60 130/82 H 106/79 [Right Brachial artery] O2 Saturation 99 99 98 06/24/20 13:00 Temperature Heart Rate Heart Rate [ 99 Monitoring electrodes] Respiratory 22 Rate Blood Pressure Blood Pressure 107/63 [Right Brachial artery] O2 Saturation 98 Oxygen O2 Source Room air I&O (Last 24 Hrs): Intake and Output Totals x24h 06/22/20 06/23/20 06/24/20 23:59 23:59 23:59 Intake Total 1050.5 1700.00 Output Total 600 2650 Balance 450.5 -950.00 General: Other (Sleeping.) HEENT: Atraumatic, Mucous membr. moist/pink Neck: Supple Neuro: Other (Sleeping, no myoclonus or tremor seen) Cardiovascular: Regular rate Respiratory: No respiratory distress Abdomen: Soft Extremities: No edema - Results Results: Laboratory Results WBC 13.7 x10^3/uL (4.8-10.8) H 06/24/20 05:40 RBC 4.03 10^6/uL (4.20-5.40) L 06/24/20 05:40 Hgb 12.4 g/dL (12.0-16.0) 06/24/20 05:40 Hct 35.8 % (37.0-47.0) L 06/24/20 05:40 MCV 88.8 fL (81.0-99.0) 06/24/20 05:40 MCH 30.8 pg (27.0-31.0) 06/24/20 05:40 MCHC 34.6 g/dL (32.0-36.0) 06/24/20 05:40 RDW 12.0 % (12.0-15.0) 06/24/20 05:40 Plt Count 219 10^3/uL (130-450) 06/24/20 05:40 MPV 12.5 fL (7.9-10.8) H 06/24/20 05:40 Neut # (Auto) 9.8 10^3/uL (1.5-6.6) H 06/24/20 05:40 Lymph # (Auto) 2.8 10^3/uL (1.5-3.5) 06/24/20 05:40 [place] # (Auto) 0.9 10^3/uL (0.0-1.0) 06/24/20 05:40 Eos # (Auto) 0.0 10^3/uL (0.0-0.7) 06/24/20 05:40 Baso # (Auto) 0.1 10^3/uL (0.0-0.1) 06/24/20 05:40 Absolute Nucleated RBC 0.00 x10^3/uL 06/24/20 05:40 Nucleated RBC % 0.0 /100WBC 06/24/20 05:40 Sodium 138 mmol/L (135-145) 06/24/20 05:40 Potassium 3.5 mmol/L (3.5-5.0) 06/24/20 05:40 Chloride 108 mmol/L (101-111) 06/24/20 05:40 Carbon Dioxide 22 mmol/L (21-32) 06/24/20 05:40 Anion Gap 8.0 (6-13) 06/24/20 05:40 BUN 8 mg/dL (6-20) 06/24/20 05:40 Creatinine 0.6 mg/dL (0.4-1.0) 06/24/20 05:40 Estimated GFR (MDRD) 123 (>89) 06/24/20 05:40 Glucose 91 mg/dL (70-100) 06/24/20 05:40 Calcium 8.7 mg/dL (8.5-10.3) 06/24/20 05:40 Magnesium 2.2 mg/dL (1.7-2.8) 06/23/20 19:05 Total Bilirubin 0.7 mg/dL (0.2-1.0) 06/24/20 05:40 AST 18 IU/L (10-42) 06/24/20 05:40 ALT 14 IU/L (10-60) 06/24/20 05:40 Alkaline Phosphatase 47 IU/L (42-121) 06/24/20 05:40 Total Protein 7.0 g/dL (6.7-8.2) 06/24/20 05:40 Albumin 4.2 g/dL (3.2-5.5) 06/24/20 05:40 Globulin 2.8 g/dL (2.1-4.2) 06/24/20 05:40 Albumin/Globulin Ratio 1.5 (1.0-2.2) 06/24/20 05:40 Lipase 32 U/L (22-51) 06/23/20 19:05 TSH 1.36 uIU/mL (0.34-5.60) 06/23/20 19:05 Urine Color YELLOW 06/23/20 19:00 Urine Clarity CLEAR (CLEAR) 06/23/20 19:00 Urine pH 6.5 PH (5.0-7.5) 06/23/20 19:00 Ur Specific [place] 1.020 (1.002-1.030) 06/23/20 19:00 Urine Protein NEGATIVE mg/dL (NEGATIVE) 06/23/20 19:00 Urine Glucose (UA) NEGATIVE mg/dL (NEGATIVE) 06/23/20 19:00 Urine Ketones NEGATIVE mg/dL (NEGATIVE) 06/23/20 19:00 Urine Occult Blood NEGATIVE (NEGATIVE) 06/23/20 19:00 Urine Nitrite NEGATIVE (NEGATIVE) 06/23/20 19:00 Urine Bilirubin NEGATIVE (NEGATIVE) 06/23/20 19:00 Urine Urobilinogen 0.2 (NORMAL) E.U./dL (NORMAL) 06/23/20 19:00 Ur Leukocyte Esterase NEGATIVE (NEGATIVE) 06/23/20 19:00 Ur Microscopic Review NOT INDICATED 06/23/20 19:00 Urine Culture Comments NOT INDICATED 06/23/20 19:00 Urine HCG, Qual NEGATIVE 06/23/20 19:00 Nasal Adenovirus (PCR) NOT DETECTED 06/23/20 19:15 Nasal B. parapertussis DNA (PCR) NOT DETECTED 06/23/20 19:15 Nasal Coronavir 229E PCR NOT DETECTED 06/23/20 19:15 Nasal Coronavir HKU1 PCR NOT DETECTED 06/23/20 19:15 Nasal Coronavir NL63 PCR NOT DETECTED 06/23/20 19:15 Nasal Coronavir OC43 PCR NOT DETECTED 06/23/20 19:15 Nasal Enterovir/Rhinovir PCR NOT DETECTED 06/23/20 19:15 Nasal Influenza B PCR NOT DETECTED 06/23/20 19:15 Nasal Influenza A PCR NOT DETECTED 06/23/20 19:15 Nasal Parainfluen 1 PCR NOT DETECTED 06/23/20 19:15 Nasal Parainfluen 2 PCR NOT DETECTED 06/23/20 19:15 Nasal Parainfluen 3 PCR NOT DETECTED 06/23/20 19:15 Nasal Parainfluen 4 PCR NOT DETECTED 06/23/20 19:15 Nasal RSV (PCR) NOT DETECTED 06/23/20 19:15 Nasal Screen MRSA (PCR) NEGATIVE (NEGATIVE) 06/23/20 22:05 Nasal B.pertussis DNA PCR NOT DETECTED 06/23/20 19:15 Nasal C.pneumoniae (PCR) NOT DETECTED 06/23/20 19:15 Bobby Human Metapneumo PCR NOT DETECTED 06/23/20 19:15 Nasal M.pneumoniae (PCR) NOT DETECTED 06/23/20 19:15 Nasal SARS-CoV-2 (PCR) NOT DETECTED 06/23/20 19:15 Salicylates < 6.0 mg/dL 06/23/20 19:05 Urine Opiates Screen NEGATIVE (NEGATIVE) 06/23/20 19:00 Ur Oxycodone Screen NEGATIVE (NEGATIVE) 06/23/20 19:00 Urine Methadone Screen NEGATIVE (NEGATIVE) 06/23/20 19:00 Ur Propoxyphene Screen NEGATIVE (NEGATIVE) 06/23/20 19:00 Acetaminophen < 10 ug/mL (10-30) L 06/23/20 19:05 Ur Barbiturates Screen NEGATIVE (NEGATIVE) 06/23/20 19:00 Ur Tricyclics Screen NEGATIVE (NEGATIVE) 06/23/20 19:00 Ur Phencyclidine Scrn NEGATIVE (NEGATIVE) 06/23/20 19:00 Ur Amphetamine Screen NEGATIVE (NEGATIVE) 06/23/20 19:00 U Methamphetamines Scrn NEGATIVE (NEGATIVE) 06/23/20 19:00 U Benzodiazepines Scrn NEGATIVE (NEGATIVE) 06/23/20 19:00 Urine Cocaine Screen NEGATIVE (NEGATIVE) 06/23/20 19:00 U Cannabinoids Screen NEGATIVE (NEGATIVE) 06/23/20 19:00 Ethyl Alcohol < 5.0 mg/dL 06/23/20 19:05 - Procedures Procedures: Procedures INSPECTION OF UTERUS AND CERVIX, EXTERNAL APPROACH (05/02/19)
--- NOTE | 2020-06-24 16:59 | CT Report ---
PROCEDURE: Head W/O Stroke Protocol INDICATIONS: Sudden double vision occipital headache TECHNIQUE: Noncontrast 4.5 mm thick angled axial sections acquired from the foramen magnum to the vertex, with c oronal reformats. For radiation dose reduction, the following was used: automated exposure control, adjustment of mA and/or kV according to patient size. COMPARISON: Brain MRI dated 07/09/2019 FINDINGS: Image quality: Excellent. CSF spaces: Basal cisterns are patent. No extra-axial fluid collections. Ventricles are normal in size and shape. Brain: No midline shift. No intracranial masses or hemorrhage. Mejia-white matter interface is norm al. Skull and face: Calvarium and visualized facial bones are intact, without suspicious lesions. Sinuses: Visualized sinuses and mastoids are clear. IMPRESSION: No CT evidence of acute intracranial pathology. This study fulfills neurological imaging criteria for inclusion or exclusion of acute stroke therapie s based on available published neurological imaging guidelines. Reviewed by: Masoud Szymanski MD on 06/24/2020 4:58 PM PST Approved by: Masoud Szymanski MD on 06/24/2020 4:58 PM PST Station ID: [id number]
[2020-06-25] MEDS ORDERED: diphenhydrAMINE INJ 50 MG/ML VIAL IVP PRN (00:41)
[2020-06-25] MEDS: SODIUM CHLORIDE FLUSH 0.9% 10 ML SYRINGE IVP SCH ×3 (01:02→15:10)
[2020-06-25 04:56] LABS: BASOPHILS # (AUTO) 0.1 10^3/uL (0.0-0.1); BASOPHILS % (AUTO) 0.7 %; EOSINOPHILS # (AUTO) 0.1 10^3/uL (0.0-0.7); EOSINOPHILS % (AUTO) 0.9 %; HGB - HEMOGLOBIN 11.7 g/dL (12.0-16.0); LYMPHOCYTES # (AUTO) 3.3 10^3/uL (1.5-3.5); LYMPHOCYTES % (AUTO) 38.3 %; MEAN CORPUSCULAR HEMOGLOBIN 29.5 pg (27.0-31.0); MEAN CORPUSCULAR HGB CONC 32.2 g/dL (32.0-36.0); MEAN CORPUSCULAR VOLUME 91.4 fL (81.0-99.0); MEAN PLATELET VOLUME 11.7 fL (7.9-10.8); MONOCYTES # (AUTO) 0.6 10^3/uL (0.0-1.0); MONOCYTES % (AUTO) 7.2 %; NEUTROPHILS # (AUTO) 4.5 10^3/uL (1.5-6.6); NEUTROPHILS % (AUTO) 52.7 %; PLT - PLATELET COUNT 211 10^3/uL (130-450); RED BLOOD COUNT 3.97 10^6/uL (4.20-5.40); RED CELL DISTRIBUTION WIDTH 11.9 % (12.0-15.0); WHITE BLOOD COUNT 8.5 x10^3/uL (4.8-10.8)
[2020-06-25 05:08] LABS: ALBUMIN 3.8 g/dL (3.2-5.5); ALBUMIN/GLOBULIN RATIO 1.5 (1.0-2.2); BILIRUBIN,TOTAL 0.6 mg/dL (0.2-1.0); CALCIUM 8.5 mg/dL (8.5-10.3); CREATININE 0.8 mg/dL (0.4-1.0); MAGNESIUM 2.2 mg/dL (1.7-2.8); PHOSPHORUS 4.3 mg/dL (2.5-4.6); TOTAL PROTEIN 6.3 g/dL (6.7-8.2)
[2020-06-25] MEDS: SODIUM CHLORIDE 0.9% 1,000 ML IV SCH ×4 (06:13→23:07)
[2020-06-25] MEDS: ENOXAPARIN 40 MG/0.4 ML SYRINGE SUBQ SCH (09:29)
--- NOTE | 2020-06-25 14:54 | PROVIDER PROGRESS NOTE ---
Assessment/Plan - Problem List (1) Medication overdose Qualifiers: Encounter type: subsequent encounter Injury intent: intentional self-harm Qualified Code(s): T50.902D - Poisoning by unspecified drugs, medicaments and biological substances, intentional self-harm, subsequent encounter Assessment/Plan: She is on one-to-one precautions in the ICU. When she is medically stabilized, will request social work to intervene r egarding overdose attempt (2) Suicidal ideation Assessment/Plan: As above. She reported to the admitting Cdl Instructor that her mother has bipolar and depression. Her sister also has depression. Her father has multiple medical problems including depression. All three family members have attempted suicide in the past. Her superiors in the [employer] have been in contact with social work and flux mixer. She will be admitted to [facility] in the psych kelly when she is medically cleared. (3) Serotonin syndrome Assessment/Plan: Poison control was involved and guided the admitting associate professor of theatre. We watched QT syndrome, and was shorter on each EKG. Her muscle tremor and jitteriness have resolved, she did need Ativan yesterday at 0500 and is somewhat sleepy today. Fever is not increasing. Monitoring for this. Heart rate is now down to ,70-100 in sinus tachycardia, she got esmolol several doses IV push at admission. Continue telemetry. (4) Diplopia Assessment/Plan: After awakening from her nap yesterday afternoon, the patient complained to her nurse of double vision and a headache. I was called and examined the patient. She had no nystagmus. There was no ocular myoclonus. She had dilated pupils that were equal and reactive to light bilaterally. EOMI. The double vision was only at a distance and it was [id number]. It was only with both eyes open, not with each individual eyes open. The headache was occipital. As per Up-To-Date, this could signify 6th nerve abnormality and the occipital headache is concerning since control of vision is occipital. A stat head CT was done and this showed no stroke, no hemorrhage, no other abnormality. We have no MRI available here till 06/28/2020, to do brain imaging that is even more detailed. Therefore this could have possibly been the side effects of the medication, causing extra ocular muscle abnormality. Today she has no further complaints of either the double vision or the headache. (5) Leukocytosis Assessment/Plan: No source of infection was found nor suspected. This has resolved without any IV antibiotics. Likely this was a phase reactant. - Current Meds Current Meds: Current Medications Generic Name Dose Route Start Last Admin Trade Name Freq PRN Reason Stop Dose Admin Enoxaparin Sodium 40 mg 06/24/20 09:00 06/25/20 09:29 Enoxaparin 40 Mg/0.4 Ml Syringe SUBQ 40 mg DAILY VALENTIN Administration Sodium Chloride 1,000 mls @ 125 mls/hr 06/23/20 21:00 06/25/20 06:46 Normal Saline 0.9% IV 125 mls/hr .Q8H VALENTIN Administration Ibuprofen 400 mg 06/23/20 22:19 06/24/20 15:50 Ibuprofen 400 Mg Tablet PO 400 mg Q6HR PRN Administration PAIN Lorazepam 1 mg 06/23/20 20:43 06/24/20 05:48 Lorazepam 2 Mg/Ml Vial IVP 1 mg Q2H PRN Administration Anxiety Sodium Chloride 10 ml 06/24/20 01:00 06/25/20 07:31 Sodium Chloride Flush 0.9% 10 Ml Syringe IVP Not Given 0100,0900,1700 VALENTIN Sodium Chloride 10 ml 06/23/20 20:35 06/23/20 23:12 Sodium Chloride Flush 0.9% 10 Ml Syringe IVP 10 ml PRN PRN Administration NEEDED PER PROVIDER ORDERS - Lab Result Fish Bone Diagrams: 06/25/20 04:37 06/25/20 04:37 - Additional Planning My Orders: My Active Orders 06/26/20 05:00 MAGNESIUM [CHEM] DAILYLAB PHOSPHORUS [CHEM] DAILYLAB Subjective - Subjective Patient Reports: Feeling Better, Resting Comfortably, No Complaints Nursing Reports: Other (She is eating, mostly sleeping, has no complaints of diplopia or headache today) Objective Vital Signs: Vital Signs - 24 hr 06/24/20 06/24/20 06/24/20 15:00 16:00 17:00 Temperature 37.0 C Heart Rate [ 87 90 91 Monitoring electrodes] Respiratory 21 18 16 Rate Blood Pressure 125/79 115/83 H 130/91 H [Right Brachial artery] O2 Saturation 97 99 100 06/24/20 06/24/20 06/24/20 18:00 19:00 20:00 Temperature Heart Rate [ 93 98 124 H Monitoring electrodes] Respiratory 100 H 20 24 Rate Blood Pressure 110/57 L 105/57 L 120/71 [Right Brachial artery] O2 Saturation 96 97 99 06/24/20 06/24/20 06/24/20 21:00 22:00 23:00 Temperature 37.2 C Heart Rate [ 108 H 91 77 Monitoring electrodes] Respiratory 20 23 15 Rate Blood Pressure 120/82 H 122/83 H 93/70 [Right Brachial artery] O2 Saturation 97 97 97 06/25/20 06/25/20 06/25/20 00:00 01:00 02:00 Temperature Heart Rate [ 84 83 77 Monitoring electrodes] Respiratory 12 21 21 Rate Blood Pressure 113/95 H 113/69 116/84 H [Right Brachial artery] O2 Saturation 96 97 97 06/25/20 06/25/20 06/25/20 03:00 04:00 05:00 Temperature 37.1 C Heart Rate [ 73 75 89 Monitoring electrodes] Respiratory 21 11 L 25 H Rate Blood Pressure 111/81 H 100/67 128/90 H [Right Brachial artery] O2 Saturation 97 96 99 06/25/20 06/25/20 06/25/20 06:00 07:00 08:00 Temperature Heart Rate [ 73 83 70 Monitoring electrodes] Respiratory 16 19 19 Rate Blood Pressure 126/83 H 109/51 L 95/55 L [Right Brachial artery] O2 Saturation 98 98 97 06/25/20 06/25/20 06/25/20 09:00 10:00 11:00 Temperature 37.0 C Heart Rate [ 80 80 70 Monitoring electrodes] Respiratory 16 16 20 Rate Blood Pressure 121/72 127/96 H 110/67 [Right Brachial artery] O2 Saturation 99 97 97 06/25/20 06/25/20 06/25/20 12:00 13:00 14:00 Temperature 37.1 C Heart Rate [ 78 80 74 Monitoring electrodes] Respiratory 19 20 22 Rate Blood Pressure 116/67 104/66 108/63 [Right Brachial artery] O2 Saturation 98 96 99 Oxygen O2 Source Room air I&O (Last 24 Hrs): Intake and Output Totals x24h 06/23/20 06/24/20 06/25/20 23:59 23:59 23:59 Intake Total 1050.5 4066.25 1420 Output Total 600 4300 1300 Balance 450.5 -233.75 120 General: Alert, Oriented x3 HEENT: PERRLA, EOMI, Mucous membr. moist/pink Neck: Supple, No JVD Neuro: Alert, Non Focal, Other (No tremor) Cardiovascular: Regular rate, No murmurs Respiratory: No respiratory distress, Breath sounds nml Abdomen: Normal bowel sounds, Soft Extremities: No edema, No tenderness/swelling - Results Results: Laboratory Results WBC 8.5 x10^3/uL (4.8-10.8) 06/25/20 04:37 RBC 3.97 10^6/uL (4.20-5.40) L 06/25/20 04:37 Hgb 11.7 g/dL (12.0-16.0) L 06/25/20 04:37 Hct 36.3 % (37.0-47.0) L 06/25/20 04:37 MCV 91.4 fL (81.0-99.0) 06/25/20 04:37 MCH 29.5 pg (27.0-31.0) 06/25/20 04:37 MCHC 32.2 g/dL (32.0-36.0) 06/25/20 04:37 RDW 11.9 % (12.0-15.0) L 06/25/20 04:37 Plt Count 211 10^3/uL (130-450) 06/25/20 04:37 MPV 11.7 fL (7.9-10.8) H 06/25/20 04:37 Neut # (Auto) 4.5 10^3/uL (1.5-6.6) 06/25/20 04:37 Lymph # (Auto) 3.3 10^3/uL (1.5-3.5) 06/25/20 04:37 [place] # (Auto) 0.6 10^3/uL (0.0-1.0) 06/25/20 04:37 Eos # (Auto) 0.1 10^3/uL (0.0-0.7) 06/25/20 04:37 Baso # (Auto) 0.1 10^3/uL (0.0-0.1) 06/25/20 04:37 Absolute Nucleated RBC 0.00 x10^3/uL 06/25/20 04:37 Nucleated RBC % 0.0 /100WBC 06/25/20 04:37 Sodium 138 mmol/L (135-145) 06/25/20 04:37 Potassium 4.1 mmol/L (3.5-5.0) 06/25/20 04:37 Chloride 107 mmol/L (101-111) 06/25/20 04:37 Carbon Dioxide 22 mmol/L (21-32) 06/25/20 04:37 Anion Gap 9.0 (6-13) 06/25/20 04:37 BUN 10 mg/dL (6-20) 06/25/20 04:37 Creatinine 0.8 mg/dL (0.4-1.0) 06/25/20 04:37 Estimated GFR (MDRD) 88 (>89) L 06/25/20 04:37 Glucose 85 mg/dL (70-100) 06/25/20 04:37 Calcium 8.5 mg/dL (8.5-10.3) 06/25/20 04:37 Phosphorus 4.3 mg/dL (2.5-4.6) 06/25/20 04:37 Magnesium 2.2 mg/dL (1.7-2.8) 06/25/20 04:37 Total Bilirubin 0.6 mg/dL (0.2-1.0) 06/25/20 04:37 AST 13 IU/L (10-42) 06/25/20 04:37 ALT 14 IU/L (10-60) 06/25/20 04:37 Alkaline Phosphatase 46 IU/L (42-121) 06/25/20 04:37 Total Protein 6.3 g/dL (6.7-8.2) L 06/25/20 04:37 Albumin 3.8 g/dL (3.2-5.5) 06/25/20 04:37 Globulin 2.5 g/dL (2.1-4.2) 06/25/20 04:37 Albumin/Globulin Ratio 1.5 (1.0-2.2) 06/25/20 04:37 Lipase 32 U/L (22-51) 06/23/20 19:05 TSH 1.36 uIU/mL (0.34-5.60) 06/23/20 19:05 Urine Color YELLOW 06/23/20 19:00 Urine Clarity CLEAR (CLEAR) 06/23/20 19:00 Urine pH 6.5 PH (5.0-7.5) 06/23/20 19:00 Ur Specific [place] 1.020 (1.002-1.030) 06/23/20 19:00 Urine Protein NEGATIVE mg/dL (NEGATIVE) 06/23/20 19:00 Urine Glucose (UA) NEGATIVE mg/dL (NEGATIVE) 06/23/20 19:00 Urine Ketones NEGATIVE mg/dL (NEGATIVE) 06/23/20 19:00 Urine Occult Blood NEGATIVE (NEGATIVE) 06/23/20 19:00 Urine Nitrite NEGATIVE (NEGATIVE) 06/23/20 19:00 Urine Bilirubin NEGATIVE (NEGATIVE) 06/23/20 19:00 Urine Urobilinogen 0.2 (NORMAL) E.U./dL (NORMAL) 06/23/20 19:00 Ur Leukocyte Esterase NEGATIVE (NEGATIVE) 06/23/20 19:00 Ur Microscopic Review NOT INDICATED 06/23/20 19:00 Urine Culture Comments NOT INDICATED 06/23/20 19:00 Urine HCG, Qual NEGATIVE 06/23/20 19:00 Nasal Adenovirus (PCR) NOT DETECTED 06/23/20 19:15 Nasal B. parapertussis DNA (PCR) NOT DETECTED 06/23/20 19:15 Nasal Coronavir 229E PCR NOT DETECTED 06/23/20 19:15 Nasal Coronavir HKU1 PCR NOT DETECTED 06/23/20 19:15 Nasal Coronavir NL63 PCR NOT DETECTED 06/23/20 19:15 Nasal Coronavir OC43 PCR NOT DETECTED 06/23/20 19:15 Nasal Enterovir/Rhinovir PCR NOT DETECTED 06/23/20 19:15 Nasal Influenza B PCR NOT DETECTED 06/23/20 19:15 Nasal Influenza A PCR NOT DETECTED 06/23/20 19:15 Nasal Parainfluen 1 PCR NOT DETECTED 06/23/20 19:15 Nasal Parainfluen 2 PCR NOT DETECTED 06/23/20 19:15 Nasal Parainfluen 3 PCR NOT DETECTED 06/23/20 19:15 Nasal Parainfluen 4 PCR NOT DETECTED 06/23/20 19:15 Nasal RSV (PCR) NOT DETECTED 06/23/20 19:15 Nasal Screen MRSA (PCR) NEGATIVE (NEGATIVE) 06/23/20 22:05 Nasal B.pertussis DNA PCR NOT DETECTED 06/23/20 19:15 Nasal C.pneumoniae (PCR) NOT DETECTED 06/23/20 19:15 Bobby Human Metapneumo PCR NOT DETECTED 06/23/20 19:15 Nasal M.pneumoniae (PCR) NOT DETECTED 06/23/20 19:15 Nasal SARS-CoV-2 (PCR) NOT DETECTED 06/23/20 19:15 Salicylates < 6.0 mg/dL 06/23/20 19:05 Urine Opiates Screen NEGATIVE (NEGATIVE) 06/23/20 19:00 Ur Oxycodone Screen NEGATIVE (NEGATIVE) 06/23/20 19:00 Urine Methadone Screen NEGATIVE (NEGATIVE) 06/23/20 19:00 Ur Propoxyphene Screen NEGATIVE (NEGATIVE) 06/23/20 19:00 Acetaminophen < 10 ug/mL (10-30) L 06/23/20 19:05 Ur Barbiturates Screen NEGATIVE (NEGATIVE) 06/23/20 19:00 Ur Tricyclics Screen NEGATIVE (NEGATIVE) 06/23/20 19:00 Ur Phencyclidine Scrn NEGATIVE (NEGATIVE) 06/23/20 19:00 Ur Amphetamine Screen NEGATIVE (NEGATIVE) 06/23/20 19:00 U Methamphetamines Scrn NEGATIVE (NEGATIVE) 06/23/20 19:00 U Benzodiazepines Scrn NEGATIVE (NEGATIVE) 06/23/20 19:00 Urine Cocaine Screen NEGATIVE (NEGATIVE) 06/23/20 19:00 U Cannabinoids Screen NEGATIVE (NEGATIVE) 06/23/20 19:00 Ethyl Alcohol < 5.0 mg/dL 06/23/20 19:05 - Procedures Procedures: Procedures INSPECTION OF UTERUS AND CERVIX, EXTERNAL APPROACH (05/02/19)
[2020-06-26] MEDS: SODIUM CHLORIDE FLUSH 0.9% 10 ML SYRINGE IVP SCH ×2 (01:17→10:33)
[2020-06-26 04:16] LABS: BASOPHILS # (AUTO) 0.1 10^3/uL (0.0-0.1); BASOPHILS % (AUTO) 0.7 %; EOSINOPHILS # (AUTO) 0.1 10^3/uL (0.0-0.7); EOSINOPHILS % (AUTO) 1.2 %; HGB - HEMOGLOBIN 11.6 g/dL (12.0-16.0); LYMPHOCYTES # (AUTO) 3.5 10^3/uL (1.5-3.5); LYMPHOCYTES % (AUTO) 39.6 %; MEAN CORPUSCULAR HEMOGLOBIN 29.4 pg (27.0-31.0); MEAN CORPUSCULAR HGB CONC 32.9 g/dL (32.0-36.0); MEAN CORPUSCULAR VOLUME 89.4 fL (81.0-99.0); MEAN PLATELET VOLUME 11.4 fL (7.9-10.8); MONOCYTES # (AUTO) 0.7 10^3/uL (0.0-1.0); MONOCYTES % (AUTO) 7.4 %; NEUTROPHILS # (AUTO) 4.5 10^3/uL (1.5-6.6); NEUTROPHILS % (AUTO) 50.8 %; PLT - PLATELET COUNT 211 10^3/uL (130-450); RED BLOOD COUNT 3.95 10^6/uL (4.20-5.40); RED CELL DISTRIBUTION WIDTH 11.9 % (12.0-15.0); WHITE BLOOD COUNT 8.8 x10^3/uL (4.8-10.8)
[2020-06-26 04:35] LABS: CALCIUM 8.5 mg/dL (8.5-10.3); CREATININE 0.8 mg/dL (0.4-1.0); MAGNESIUM 2.1 mg/dL (1.7-2.8); PHOSPHORUS 4.3 mg/dL (2.5-4.6)
[2020-06-26] MEDS: SODIUM CHLORIDE 0.9% 1,000 ML IV SCH (07:23)
[2020-06-26] MEDS: ENOXAPARIN 40 MG/0.4 ML SYRINGE SUBQ SCH (10:33)
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
[2020-06-26 13:22] VITALS: BP 119/83
== END 2020-06-26 15:10 | DRG 918 ==
LOC: ED 18:44 → ICU 20:35
PROVIDERS: ADMIT Internal Medicine; ATTEND Internal Medicine
DX: T43.222A Poisoning by selective serotonin reuptake inhibitors, intentional self-harm, initial encounter (principal); Y92.009 Unspecified place in unspecified non-institutional (private) residence as the place of occurrence of the external cause; F32.9 Major depressive disorder, single episode, unspecified; F41.9 Anxiety disorder, unspecified; R00.0 Tachycardia, unspecified; G25.1 Drug-induced tremor; H53.2 Diplopia; D72.829 Elevated white blood cell count, unspecified; G25.3 Myoclonus; R10.9 Unspecified abdominal pain; R11.0 Nausea; Z91.5 Personal history of self-harm; Z81.8 Family history of other mental and behavioral disorders; Z79.899 Other long term (current) drug therapy
CPT/HCPCS: 0202U; 36415; 70450; 80048; 80053; 80306; 80307; 80320; 80329; 81003; 81025; 83690; 83735; 84100; 84443; 85025; 87150; 93005; 96361; 96365; 96375; 96376; 99285; A9270; J1650; J2060; J7040; 81001; 87086

== ENCOUNTER 2020-08-26 20:29 | Outpatient (CLI) | payer OTHER | END 2020-08-26 20:30 | disposition home or self-care (01) | LOC: SC 20:29 | PROVIDERS: ATTEND Nurse Practitioner Family | DX: G47.61 Periodic limb movement disorder (principal); E66.3 Overweight; Z68.26 Body mass index [BMI] 26.0-26.9, adult | CPT/HCPCS: 95810 ==

== ENCOUNTER 2020-09-03 11:14 | Outpatient (CLI) | payer OTHER ==
--- NOTE | 2020-09-03 11:58 | SLEEP CARE CONSULTATION ---
Information from patient questionnaire entered by Nicky Rose. I have reviewed and concur with the information entered by Nicky Rose. This document represents the service I personally performed and the decisions made by me, Rudi Angel MD, [facility]. History of Present Illness Service Date and Time: 09/03/2020 1114 Initial [place] Sleepiness Scale score: 0 (in 2019) Additional HPI information: HPI: Ms. Soto returned for follow up of the sleep study she had on 08/26/2020. The polysomnography showed that the patient had slightly reduced sleep efficiency due to a prolonged awakening in the first half of the night. The sleep architecture was normal. Respiratory monitoring showed no significant sleep disordered breathing (AHI = 0.5) hypoxia (sharmila oxygen saturation of 91%). The patient slept adequately in supine position (supine AHI = 0.4; non-supine = 0.57). Snore was light in intensity. There was mild periodic leg movement of sleep not associated with sleep fragmentation. Cardiac rhythm was normal sinus rhythm without significant arrhythmia. No abnormal behavior (parasomnia) observed during the night. The patient was informed of these findings. I explained to her that the sleep study was normal except for mild periodic leg movement of sleep. The patient reports occasional restless leg sensation during the day. Sleep Study - Results Type of Sleep Study: Polysomnography Prior sleep studies: No Allergies and Home Medications Drug allergies reviewed: Yes Home medication list reviewed: Yes Review of Systems Review of systems same as previous: Yes Physical Exam Height: 5 ft 4 in Weight: 155 lb Body Mass Index: 26.6 BMI Classification: Overweight Impression and Plan IMPRESSION: 1. Periodic leg movement of sleep ICD G47.63, mild, with occasional restless leg syndrome. The cause of periodic leg movement of sleep is typically unknown. Few known causes are iron deficiency, renal failure, and selective serotonin reuptake inhibitors. Iron and ferritin levels are recommended in addition to the routine blood work. PLAN: 1. Follow up with her primary care provider regards to restless leg syndrome. 2. Return to the sleep clinic on as needed basis. Visit Type: In Office Time Spent with Patient (minutes): 15 Provider Statement: I spent 100% of the Face to Face Visit with the patient with greater than 50% spent counseling the patient and coordination of care.
== END 2020-09-03 11:15 | disposition home or self-care (01) ==
LOC: SC 11:14
PROVIDERS: ATTEND Internal Medicine Pulmonary Disease
DX: G47.61 Periodic limb movement disorder (principal); G47.63 Sleep related bruxism
CPT/HCPCS: 99212

== ENCOUNTER 2020-10-02 16:03 | Emergency (ER) | payer OTHER ==
[2020-10-02 16:31] LABS: BASOPHILS # (AUTO) 0.1 10^3/uL (0.0-0.1); BASOPHILS % (AUTO) 0.7 %; EOSINOPHILS # (AUTO) 0.1 10^3/uL (0.0-0.7); EOSINOPHILS % (AUTO) 0.6 %; HCT - HEMATOCRIT 41.5 % (37.0-47.0); HGB - HEMOGLOBIN 13.7 g/dL (12.0-16.0); LYMPHOCYTES # (AUTO) 2.5 10^3/uL (1.5-3.5); LYMPHOCYTES % (AUTO) 26.5 %; MEAN CORPUSCULAR HEMOGLOBIN 28.5 pg (27.0-31.0); MEAN CORPUSCULAR VOLUME 86.5 fL (81.0-99.0); MEAN PLATELET VOLUME 10.9 fL (7.9-10.8); MONOCYTES # (AUTO) 0.6 10^3/uL (0.0-1.0); MONOCYTES % (AUTO) 6.3 %; NEUTROPHILS # (AUTO) 6.2 10^3/uL (1.5-6.6); NEUTROPHILS % (AUTO) 65.5 %; PLT - PLATELET COUNT 248 10^3/uL (130-450); RED CELL DISTRIBUTION WIDTH 13.2 % (12.0-15.0); WHITE BLOOD COUNT 9.4 x10^3/uL (4.8-10.8)
[2020-10-02 16:34] VITALS: BP 132/97
--- NOTE | 2020-10-02 16:34 | ED Physician Documentation ---
PD HPI MHE - Stated complaint Stated Complaint: MHE - Chief complaint Chief Complaint: MHE - History obtained from History obtained from: Patient - Additional information Additional information: 24-year-old woman with history of depression and suicide attempts presents with increased depression because of some friends and family with cancer diagnoses. She vented to somebody last night but has no active suicidal ideation or thoughts of self-harm. 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: Endometriosis : None HEENT: None Psych: Depression, Anxiety, Other Musculoskeletal: None Derm: None Other Past Medical History: Pelvic pain - Past Surgical History Past Surgical History: Yes General: Appendectomy /ELECTRONIC 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: Other HEENT: Tonsil/Adenoidectomy - Present Medications Home Medications: Ambulatory Orders Medication Instructions Recorded Confirmed Levonorgestrel-Ethin Estradiol 1 tab PO DAILY 04/22/20 10/02/20 [Levonor-Eth Estrad 0.15-0.03] Sertraline [Zoloft] 100 mg ORAL DAILY 04/22/20 10/02/20 Prazosin HCl [Minipress] 10 mg PO DAILY 06/23/20 10/02/20 Propranolol [Inderal] 10 mg PO PRN PRN 10/02/20 10/02/20 - Allergies Allergies/Adverse Reactions: Allergies Allergy/AdvReac Type Severity Reaction Status Date / Time pollen extracts AdvReac Mild Unknown Verified 10/02/20 16:07 murrell pepper AdvReac Edema Uncoded 06/23/20 19:18 - Social History Does the pt smoke?: No Smoking Status: Never smoker Does the pt drink ETOH?: No Does the pt have substance abuse?: No - Immunizations Immunizations are current?: Yes - POLST Patient has POLST: No POLST Status: Full Code PD ED PE NORMAL - Vitals Vital signs reviewed: Yes - General General: Alert and oriented X 3, No acute distress, Well developed/nourished - Neuro Neuro: Alert and oriented X 3, Normal speech - Psych Psych: Normal mood, Normal affect, Other (Good eye contact, smiling, seems hopeful) Results - Vitals Vitals: Vital Signs - 24 hr 10/02/20 10/02/20 16:08 16:32 Temperature 37.3 C Heart Rate 105 H 98 Respiratory 18 14 Rate Blood Pressure 142/104 H 132/97 H O2 Saturation 99 100 Oxygen O2 Source Room air - Labs Labs: Laboratory Tests 10/02/20 10/02/20 10/02/20 16:26 16:26 16:26 WBC 9.4 RBC 4.80 Hgb 13.7 Hct 41.5 MCV 86.5 MCH 28.5 MCHC 33.0 RDW 13.2 Plt Count 248 MPV 10.9 H Neut # (Auto) 6.2 Lymph # (Auto) 2.5 Dare # (Auto) 0.6 Eos # (Auto) 0.1 Baso # (Auto) 0.1 Absolute Nucleated RBC 0.00 Nucleated RBC % 0.0 Sodium 137 Potassium 3.8 Chloride 103 Carbon Dioxide 24 Anion Gap 10.0 BUN 14 Creatinine 0.8 Estimated GFR (MDRD) 88 L Glucose 93 Calcium 9.3 Total Bilirubin 0.8 AST 32 ALT 58 Alkaline Phosphatase 58 Total Protein 7.9 Albumin 4.4 Globulin 3.5 Albumin/Globulin Ratio 1.3 Lipase 23 TSH 1.14 Salicylates < 6.0 Acetaminophen < 10 L Ethyl Alcohol < 5.0 PD MEDICAL DECISION MAKING - ED course ED course: 24-year-old woman with known depression and history of suicide attempts presents with increased depression but no active SI or thoughts of self-harm. She requests discharge but is counseled that she can return anytime if worse. Departure - Departure Disposition: 01 Home, Self Care Clinical Impression: Depression Qualifiers: Depression Type: major depressive disorder Major depression recurrence: recurrent Active/Remission status: currently active Major depression episode severity: moderate Qualified Code(s): F33.1 - Major depressive disorder, recurrent, moderate Condition: Good Record reviewed to determine appropriate education?: Yes Instructions: ED Depression Comments: Follow-up with your counselor, return if worsening. Discharge Date/Time: 10/02/20 17:10
[2020-10-02 16:47] LABS: ACETAMINOPHEN < 10 ug/mL (10-30); ALBUMIN 4.4 g/dL (3.2-5.5); ALBUMIN/GLOBULIN RATIO 1.3 (1.0-2.2); ALKALINE PHOSPHATASE 58 IU/L (42-121); ALT ALANINE AMINOTRANSFERASE 58 IU/L (10-60); AST ASPARTATE AMINOTRANSFERASE 32 IU/L (10-42); BILIRUBIN,TOTAL 0.8 mg/dL (0.2-1.0); BUN - BLOOD UREA NITROGEN 14 mg/dL (6-20); CALCIUM 9.3 mg/dL (8.5-10.3); CARBON DIOXIDE - CO2 24 mmol/L (21-32); CHLORIDE 103 mmol/L (101-111); CREATININE 0.8 mg/dL (0.4-1.0); ETOH - ETHANOL < 5.0 mg/dL; GFR - MDRD 88 (>89); GLUCOSE 93 mg/dL (70-100); LIPASE 23 U/L (22-51); POTASSIUM 3.8 mmol/L (3.5-5.0); SALICYLATE < 6.0 mg/dL; SODIUM 137 mmol/L (135-145); TOTAL PROTEIN 7.9 g/dL (6.7-8.2)
[2020-10-02 18:08] LABS: B. PARAPERTUSSIS- RESP PCR PAN NOT DETECTED; B. PERTUSSIS- RESP PCR PANEL NOT DETECTED; C. PNEUMONIAE- RESP PCR PANEL NOT DETECTED; CORONAVIRUS 229E-RESP PCR NOT DETECTED; CORONAVIRUS HKU1-RESP PCR NOT DETECTED; CORONAVIRUS NL63-RESP PCR NOT DETECTED; CORONAVIRUS OC43-RESP PCR NOT DETECTED; HUMAN METAPNEUMOVIRUS NOT DETECTED; INFLUENZA A- RESP PCR PANEL NOT DETECTED; INFLUENZA B - RESP PCR PANEL NOT DETECTED; M. PNEUMONIAE- RESP PCR PANEL NOT DETECTED; PARAINFLUENZA VIRUS 1 NOT DETECTED; PARAINFLUENZA VIRUS 2 NOT DETECTED; PARAINFLUENZA VIRUS 3 NOT DETECTED; PARAINFLUENZA VIRUS 4 NOT DETECTED; RHINOVIRUS/ENTEROVIRUS NOT DETECTED; RSV- RESP PCR PANEL NOT DETECTED; SARS-CoV-2 -RESP PCR PANEL NOT DETECTED
--- OUTSIDE RECORDS SUMMARY | 2020-10-09 23:02 | EXTERNAL MEDICAL SUMMARY RPT | Continuity of Care Document ---
:1995 Demographics Phone Unavailable Preferred Language Unknown Marital Status Unknown Holiness Affiliation Unknown Race Unknown Ethnic Group Unknown Author Organization [place] Address [address] [id number] Phone Social History date description facility [phone]
== END 2020-10-02 17:10 | disposition home or self-care (01) ==
LOC: ED 16:03
DX: F33.1 Major depressive disorder, recurrent, moderate (principal); Z20.822 Contact with and (suspected) exposure to COVID-19
CPT/HCPCS: 0202U; 36415; 80053; 80307; 80320; 80329; 83690; 84443; 85025; 99283